=== PATIENT | female | born 1980 | race Caucasian/White ===

== ENCOUNTER 2019-03-16 19:07 | Emergency (ER) | payer OTHER, SELFPAY ==
[2019-03-16 19:27] VITALS: BP 155/82; PULSE 73; RESP 14; TEMP 36.2; O2SAT 100; BMI 45.6
--- NOTE | 2019-03-16 20:36 | ED.DIZZY ---
HPI - Dizziness <MALOU Ansari - Last Filed: 03/16/19 22:43> General Chief Complaint: Dizziness Stated Complaint: DIZZY Time Seen by Provider: 03/16/19 20:19 Source: patient Mode of arrival: ambulatory Limitations: no limitations History of Present Illness HPI Narrative: 30-year-old healthy female presents emergency department today after feeling lightheaded since yesterday. States that she had an earache on Tuesday and Tuesday, felt that her chest was tight on Tuesday and Tuesday, and felt congested with a slight postnasal drip the past few days. States that she feels like she stepped off a boat. Denies syncope, chest pain, shortness of breath, nausea, vomiting, abdominal pain, leg swelling, feeling like the room spinning, head trauma, or palpitations. MD complaint: lightheadedness Onset (ago): day(s) Timing: gradual onset Description: lightheadedness History of similar episodes: No History of trauma: No Severity: moderate Relieving factors: nothing Exacerbating factors: nothing Associated symptoms: denies other symptoms Related Data Home Medications Medication Instructions Recorded Confirmed No Known Home Medications 09/21/18 09/21/18 Allergies Allergy/AdvReac Type Severity Reaction Status Date / Time morphine Allergy Mild HIVES Verified 03/16/19 19:27 Review of Systems <MALOU Ansari - Last Filed: 03/16/19 22:43> Review of Systems REVIEW OF SYSTEMS: GENERAL: Denies fever, chills, malaise, or wt. loss. HENT: No head trauma, sore throat, or hearing loss. HPI EYES: No loss of vision, double vision, eye pain, or irritation. CARDIOVASCULAR: No chest pain, palpitations, edema, syncope, or orthopnea. RESPIRATORY: No shortness of breath, cough, or wheeze. GASTROINTESTINAL: No change in appetite, nausea, vomiting, stool changes, or melena. GENITOURINARY: No flank pain, urinary incontinence, hesitancy, frequency, or dysuria. No vaginal discharge or dyspareunia. MUSCULOSKELETAL: No pain, weakness, or deformities. INTEGUMENTARY: No rash, lesions, or pruritus. NEURO: Complains of dizziness, see HPI PSYCH: No behavior or mood changes. ENDOCRINOLOGY: No hair loss of temperature intolerance. HEMATOLOGY: No easy bruising. LYMPHATIC: No lymphadenopathy. PFSH <MALOU Ansari - Last Filed: 03/16/19 22:43> Medical History Arthritis (Chronic) Depression (Chronic) Hidradenitis suppurativa (Chronic) Obesity (Chronic) Rosacea (Chronic) Family History Grandmother Polymyalgia rheumatica Mother Hypertension Family/Other Polymyalgia rheumatica Son Autism Social History Smoking Status: Never smoker Family History Grandmother Polymyalgia rheumatica Mother Hypertension Family/Other Polymyalgia rheumatica Son Autism Social History Smoking Status: Never smoker Exam <MALOU Ansari - Last Filed: 03/16/19 22:43> Initial Vital Signs Initial Vital Signs: Vital Signs Temperature 97.2 F L 03/16/19 19:27 Pulse Rate 73 03/16/19 19:27 Respiratory Rate 14 03/16/19 19:27 Blood Pressure 155/82 H 03/16/19 19:27 Pulse Oximetry 100 03/16/19 19:27 PHYSICAL EXAMINATION: GENERAL: Well groomed, alert, and cooperative Answers questions promptly and appropriately. Vital signs noted. HENT: Normocephalic, atraumatic. Facial features symmetrical. Ear canals patent without excessive wax or erythema. Slight erythema to the back of the oropharynx, postnasal drip noted. Oral mucosa is pink and moist. Slight tenderness to palpation of frontal sinuses. EYES: PERRLA, conjunctiva pink, sclera white, no periorbital swelling. CHEST: Normal to inspection and without deformities. CARDIOVASCULAR: S1 and S2 sounds normal. Regular rate and rhythm, no murmurs, clicks, or bruits. No pedal edema. RESPIRATORY: Normal respiratory rate, trachea midline, airway patent. No stridor, nasal flaring or accessory muscle use. Lungs are clear in all king without wheeze, rhonchi, or crackles. GASTROINTESTINAL: Bowel sounds normoactive. Abdomen is soft and non-tender. No organomegaly. MUSCULOSKELETAL: Normal gait and coordination. Equal tone and mass bilaterally. No spinal tenderness or deformities. EXTREMITIES: CMS intact. Moves all extremities. SKIN: Warm, dry, soft, appropriate color for ethnicity. No lesions, rashes, or wounds. NEURO: Alert and Oriented X 3. Good coordination. No ataxia, or sensory deficits, or cognitive issues. PSYCH: Appropriate affect and mood. <Bill Bronson DO - Last Filed: 03/17/19 00:40> Initial Vital Signs Initial Vital Signs: Vital Signs Temperature 97.2 F L 03/16/19 19:27 Pulse Rate 73 03/16/19 19:27 Respiratory Rate 14 03/16/19 19:27 Blood Pressure 155/82 H 03/16/19 19:27 Pulse Oximetry 100 03/16/19 19:27 Course <MALOU Ansari - Last Filed: 03/16/19 22:43> Orders Ordered: ED Orders 03/16/19 19:27 EKG-12 Lead Stat 03/16/19 20:52 Complete Blood Count AUTO DIFF Stat Comprehensive Metabolic Panel Stat Troponin I Stat Discontinued Medications Meclizine HCl (Antivert) 25 mg PO NOW ONE Stop: 03/16/19 20:33 Last Admin: 03/16/19 20:47 Dose: 25 mg Reevaluation(s) Reevaluation #1: Patient states she is feeling much better after administration of meclizine. Discussed lab results with patient states that she is commonly slightly anemic. Consultations Consultation #1: Patient staffed with Dr. Bronson whom agreed with plan of care. Vital Signs - 8 hr 03/16/19 19:27 03/16/19 21:35 Temperature 97.2 F L Pulse Rate 73 62 Respiratory Rate 14 16 Blood Pressure 155/82 H Blood Pressure [Left Arm] 129/67 Pulse Oximetry 100 99 <Bill Bronson DO - Last Filed: 03/17/19 00:40> Orders Ordered: ED Orders 03/16/19 19:27 EKG-12 Lead Stat 03/16/19 20:52 Complete Blood Count AUTO DIFF Stat Comprehensive Metabolic Panel Stat Troponin I Stat Discontinued Medications Meclizine HCl (Antivert) 25 mg PO NOW ONE Stop: 03/16/19 20:33 Last Admin: 03/16/19 20:47 Dose: 25 mg Vital Signs - 8 hr 03/16/19 19:27 03/16/19 21:35 Temperature 97.2 F L Pulse Rate 73 62 Respiratory Rate 14 16 Blood Pressure 155/82 H Blood Pressure [Left Arm] 129/67 Pulse Oximetry 100 99 MDM - Dizziness <IRWIN AnsariP - Last Filed: 03/16/19 22:43> Medical Records Attestation: I reviewed the patient's medical records. Lab Data Attestation: I reviewed the patient's lab results. Result diagrams: 03/16/19 20:52 03/16/19 20:52 Lab Results 03/16/19 03/16/19 Range/Units 20:52 20:52 WBC 9.3 (4.5-11.0) X10^3/uL RBC 4.80 (4.0-5.2) X10^6/uL Hgb 12.1 (12.0-16.0) g/dL Hct 35.8 L (36-46) % MCV 74.6 L (80-100) fL MCH 25.2 L (26-34) PG MCHC 33.7 (30-36) % RDW 14.3 (11.6-14.8) % Plt Count 244 (150-400) X10^3/uL Neut % (Auto) 67.4 (50-75) % Lymph % (Auto) 22.7 L (25-40) % Ida % (Auto) 7.8 (3-14) % Eos % (Auto) 1.2 L (2-4) % Baso % (Auto) 0.9 (0-2) % Neut # (Auto) 6300 (8003-9570) /uL Lymph # (Auto) 2100 (9245-1312) /uL Ida # (Auto) 700 (0-900) /uL Eos # (Auto) 100 (0-450) /uL Baso # (Auto) 100 (0-100) /uL Sodium 139 (137-145) mmol/L Potassium 3.9 (3.4-5.1) mmol/L Chloride 105 (98-107) mmol/L Carbon Dioxide 27 (22-32) mmol/L BUN 19 H (7-17) mg/dL Creatinine 0.80 (0.52-1.04) mg/dL Estimated GFR > 60.0 (>60) mL/min BUN/Creatinine Ratio 23.8 H (6-22) Glucose 85 (70-100) mg/dL Calcium 9.6 (8.4-10.2) mg/dL Total Bilirubin 0.4 (0.2-1.3) mg/dL AST 18 (14-36) IU/L ALT 7 L (9-52) IU/L Alkaline Phosphatase 99 (38-126) U/L Troponin I < 0.012 (0.01-0.034) ng/mL Total Protein 7.8 (6.3-8.2) g/dL Albumin 4.3 (3.5-5.0) g/dL Globulin 3.5 (1.7-4.1) g/dL Albumin/Globulin Ratio 1.2 (1.0-2.8) Urine Dip Bedside Urine Glucose Negative Bedside Urine Bilirubin - Negative Bedside Urine Ketone - Negative Urine Specific [place] 1.025 Bedside Urine Occult Blood +/- Bedside Urine pH 6.0 Bedside Urine Protein - Negative Bedside Urine Urobilinogen - Negative Bedside Urine Nitrite - Negative Bedside Urine Leukocytes - Negative Esterase ECG Data Attestation: I personally reviewed and interpreted this ECG as follows: Interpretation: Sinus rhythm, rate 61, GA interval 141, QTC 404, no ST elevation, no ST depression, no T-wave abnormality. [facility] Narrative Medical decision making narrative: Suspect her dizziness is caused by a variety of things potentially slight anemia (Chronic and is currently menstruating), dehydration as noted in labs, possibly the beginning of a upper respiratory illness. Less likely cardiac in nature due to negative troponins and unremarkable EKG. Less likely vertigo caused right inner ear issues due to clear tympanic membranes, and no complaints of the room spinning. Less likely central vertical due to negative neuro exam. <Bill Bronson, DO - Last Filed: 03/17/19 00:40> Lab Data Lab Results 03/16/19 03/16/19 Range/Units 20:52 20:52 WBC 9.3 (4.5-11.0) X10^3/uL RBC 4.80 (4.0-5.2) X10^6/uL Hgb 12.1 (12.0-16.0) g/dL Hct 35.8 L (36-46) % MCV 74.6 L (80-100) fL MCH 25.2 L (26-34) PG MCHC 33.7 (30-36) % RDW 14.3 (11.6-14.8) % Plt Count 244 (150-400) X10^3/uL Neut % (Auto) 67.4 (50-75) % Lymph % (Auto) 22.7 L (25-40) % Ida % (Auto) 7.8 (3-14) % Eos % (Auto) 1.2 L (2-4) % Baso % (Auto) 0.9 (0-2) % Neut # (Auto) 6300 (7077-3478) /uL Lymph # (Auto) 2100 (9495-0521) /uL Ida # (Auto) 700 (0-900) /uL Eos # (Auto) 100 (0-450) /uL Baso # (Auto) 100 (0-100) /uL Sodium 139 (137-145) mmol/L Potassium 3.9 (3.4-5.1) mmol/L Chloride 105 (98-107) mmol/L Carbon Dioxide 27 (22-32) mmol/L BUN 19 H (7-17) mg/dL Creatinine 0.80 (0.52-1.04) mg/dL Estimated GFR > 60.0 (>60) mL/min BUN/Creatinine Ratio 23.8 H (6-22) Glucose 85 (70-100) mg/dL Calcium 9.6 (8.4-10.2) mg/dL Total Bilirubin 0.4 (0.2-1.3) mg/dL AST 18 (14-36) IU/L ALT 7 L (9-52) IU/L Alkaline Phosphatase 99 (38-126) U/L Troponin I < 0.012 (0.01-0.034) ng/mL Total Protein 7.8 (6.3-8.2) g/dL Albumin 4.3 (3.5-5.0) g/dL Globulin 3.5 (1.7-4.1) g/dL Albumin/Globulin Ratio 1.2 (1.0-2.8) Urine Dip Bedside Urine Glucose Negative Bedside Urine Bilirubin - Negative Bedside Urine Ketone - Negative Urine Specific [place] 1.025 Bedside Urine Occult Blood +/- Bedside Urine pH 6.0 Bedside Urine Protein - Negative Bedside Urine Urobilinogen - Negative Bedside Urine Nitrite - Negative Bedside Urine Leukocytes - Negative Esterase Discharge Plan Departure Patient Disposition: Home Clinical Impression: Dizziness Discharge Date/Time: 03/16/19 22:02 Interventions: ED Discharge Assessment Last Done: 03/16/19 22:01 Instructions: DI for Vertigo, DI for Dizziness-Nonvertigo Activity Restrictions/Additional Instructions: Thank you for entrusting me with your care today. As discussed, it appears that you are mildly anemic as well as dehydrated based on your labs. Recommend following up with their primary care provider in the next few weeks to keep an eye on this. Please drink a lot of fluids next coming days and then get some rest. You also may use [id number] meclizine as needed for symptoms. Return emergency department if you experience chest pain, shortness of breath, syncope or worsening dizziness. Prescriptions: No Action No Known Home Medications RF: 0 Referrals: Kiel Ramírez MD [Primary Care Provider] - <Bill Bronson DO - Last Filed: 03/17/19 00:40> Cosign ED Attending Fili Attestation: I was available for consultation during this patient's emergency department encounter
--- NOTE | 2019-03-16 20:40 | ED_ITS ---
HPI - Dizziness <MALOU Ansari - Last Filed: 03/16/19 22:43> General Chief Complaint: Dizziness Stated Complaint: DIZZY Time Seen by Provider: 03/16/19 20:19 Source: patient Mode of arrival: ambulatory Limitations: no limitations History of Present Illness HPI Narrative: 30-year-old healthy female presents emergency department today after feeling lightheaded since yesterday. States that she had an earache on Tuesday and Tuesday, felt that her chest was tight on Tuesday and Tuesday, and felt congested with a slight postnasal drip the past few days. States that she feels like she stepped off a boat. Denies syncope, chest pain, shortness of breath, nausea, vomiting, abdominal pain, leg swelling, feeling like the room spinning, head trauma, or palpitations. MD complaint: lightheadedness Onset (ago): day(s) Timing: gradual onset Description: lightheadedness History of similar episodes: No History of trauma: No Severity: moderate Relieving factors: nothing Exacerbating factors: nothing Associated symptoms: denies other symptoms Related Data Home Medications Medication Instructions Recorded Confirmed No Known Home Medications 09/21/18 09/21/18 Allergies Allergy/AdvReac Type Severity Reaction Status Date / Time morphine Allergy Mild HIVES Verified 03/16/19 19:27 Review of Systems <MALOU Ansari - Last Filed: 03/16/19 22:43> Review of Systems REVIEW OF SYSTEMS: GENERAL: Denies fever, chills, malaise, or wt. loss. HENT: No head trauma, sore throat, or hearing loss. HPI EYES: No loss of vision, double vision, eye pain, or irritation. CARDIOVASCULAR: No chest pain, palpitations, edema, syncope, or orthopnea. RESPIRATORY: No shortness of breath, cough, or wheeze. GASTROINTESTINAL: No change in appetite, nausea, vomiting, stool changes, or melena. GENITOURINARY: No flank pain, urinary incontinence, hesitancy, frequency, or dysuria. No vaginal discharge or dyspareunia. MUSCULOSKELETAL: No pain, weakness, or deformities. INTEGUMENTARY: No rash, lesions, or pruritus. NEURO: Complains of dizziness, see HPI PSYCH: No behavior or mood changes. ENDOCRINOLOGY: No hair loss of temperature intolerance. HEMATOLOGY: No easy bruising. LYMPHATIC: No lymphadenopathy. PFSH <MALOU Ansari - Last Filed: 03/16/19 22:43> Medical History Arthritis (Chronic) Depression (Chronic) Hidradenitis suppurativa (Chronic) Obesity (Chronic) Rosacea (Chronic) Family History Grandmother Polymyalgia rheumatica Mother Hypertension Family/Other Polymyalgia rheumatica Son Autism Social History Smoking Status: Never smoker Family History Grandmother Polymyalgia rheumatica Mother Hypertension Family/Other Polymyalgia rheumatica Son Autism Social History Smoking Status: Never smoker Exam <MALOU Ansari - Last Filed: 03/16/19 22:43> Initial Vital Signs Initial Vital Signs: Vital Signs Temperature 97.2 F L 03/16/19 19:27 Pulse Rate 73 03/16/19 19:27 Respiratory Rate 14 03/16/19 19:27 Blood Pressure 155/82 H 03/16/19 19:27 Pulse Oximetry 100 03/16/19 19:27 PHYSICAL EXAMINATION: GENERAL: Well groomed, alert, and cooperative Answers questions promptly and appropriately. Vital signs noted. HENT: Normocephalic, atraumatic. Facial features symmetrical. Ear canals patent without excessive wax or erythema. Slight erythema to the back of the oropharynx, postnasal drip noted. Oral mucosa is pink and moist. Slight tende rness to palpation of frontal sinuses. EYES: PERRLA, conjunctiva pink, sclera white, no periorbital swelling. CHEST: Normal to inspection and without deformities. CARDIOVASCULAR: S1 and S2 sounds normal. Regular rate and rhythm, no murmurs, clicks, or bruits. No pedal edema. RESPIRATORY: Normal respiratory rate, trachea midline, airway patent. No stridor, nasal flaring or accessory muscle use. Lungs are clear in all king without wheeze, rhonchi, or crackles. GASTROINTESTINAL: Bowel sounds normoactive. Abdomen is soft and non-tender. No organomegaly. MUSCULOSKELETAL: Normal gait and coordination. Equal tone and mass bilaterally. No spinal tenderness or deformities. EXTREMITIES: CMS intact. Moves all extremities. SKIN: Warm, dry, soft, appropriate color for ethnicity. No lesions, rashes, or wounds. NEURO: Alert and Oriented X 3. Good coordination. No ataxia, or sensory d eficits, or cognitive issues. PSYCH: Appropriate affect and mood. <Bill Bronson DO - Last Filed: 03/17/19 00:40> Initial Vital Signs Initial Vital Signs: Vital Signs Temperature 97.2 F L 03/16/19 19:27 Pulse Rate 73 03/16/19 19:27 Respiratory Rate 14 03/16/19 19:27 Blood Pressure 155/82 H 03/16/19 19:27 Pulse Oximetry 100 03/16/19 19:27 Course <MALOU Ansari - Last Filed: 03/16/19 22:43> Orders Ordered: ED Orders 03/16/19 19:27 EKG-12 Lead Stat 03/16/19 20:52 Complete Blood Count AUTO DIFF Stat Comprehensive Metabolic Panel Stat Troponin I Stat Discontinued Medications Meclizine HCl (Antivert) 25 mg PO NOW ONE Stop: 03/16/19 20:33 Last Admin: 03/16/19 20:47 Dose: 25 mg Reevaluation(s) Reevaluation #1: Patient states she is feeling much better after administration of meclizine. Discussed lab results with patient states that she is commonly slightly anemic. Consultations Consultation #1: Patient staffed with Dr. Bronson whom agreed with plan of care. Vital Signs - 8 hr 03/16/19 19:27 03/16/19 21:35 Temperature 97.2 F L Pulse Rate 73 62 Respiratory Rate 14 16 Blood Pressure 155/82 H Blood Pressure [Left Arm] 129/67 Pulse Oximetry 100 99 <Bill Bronson DO - Last Filed: 03/17/19 00:40> Orders Ordered: ED Orders 03/16/19 19:27 EKG-12 Lead Stat 03/16/19 20:52 Complete Blood Count AUTO DIFF Stat Comprehensive Metabolic Panel Stat Troponin I Stat Discontinued Medications Meclizine HCl (Antivert) 25 mg PO NOW ONE Stop: 03/16/19 20:33 Last Admin: 03/16/19 20:47 Dose: 25 mg Vital Signs - 8 hr 03/16/19 19:27 03/16/19 21:35 Temperature 97.2 F L Pulse Rate 73 62 Respiratory Rate 14 16 Blood Pressure 155/82 H Blood Pressure [Left Arm] 129/67 Pulse Oximetry 100 99 MDM - Dizziness <MALOU Ansari - Last Filed: 03/16/19 22:43> Medical Records Attestation: I reviewed the patient's medical records. Lab Data Attestation: I reviewed the patient's lab results. Result diagrams: 03/16/19 20:52 03/16/19 20:52 Lab Results 03/16/19 03/16/19 Range/Units 20:52 20:52 WBC 9.3 (4.5-11.0) X10^3/uL RBC 4.80 (4.0-5.2) X10^6/uL Hgb 12.1 (12.0-16.0) g/dL Hct 35.8 L (36-46) % MCV 74.6 L (80-100) fL MCH 25.2 L (26-34) PG MCHC 33.7 (30-36) % RDW 14.3 (11.6-14.8) % Plt Count 244 (150-400) X10^3/uL Neut % (Auto) 67.4 (50-75) % Lymph % (Auto) 22.7 L (25-40) % [place] % (Auto) 7.8 (3-14) % Eos % (Auto) 1.2 L (2-4) % Baso % (Auto) 0.9 (0-2) % Neut # (Auto) 6300 (6998-3304) /uL Lymph # (Auto) 2100 (4259-7904) /uL [place] # (Auto) 700 (0-900) /uL Eos # (Auto) 100 (0-450) /uL Baso # (Auto) 100 (0-100) /uL Sodium 139 (137-145) mmol/L Potassium 3.9 (3.4-5.1) mmol/L Chloride 105 (98-107) mmol/L Carbon Dioxide 27 (22-32) mmol/L BUN 19 H (7-17) mg/dL Creatinine 0.80 (0.52-1.04) mg/dL Estimated GFR > 60.0 (>60) mL/min BUN/Creatinine Ratio 23.8 H (6-22) Glucose 85 (70-100) mg/dL Calcium 9.6 (8.4-10.2) mg/dL Total Bilirubin 0.4 (0.2-1.3) mg/dL AST 18 (14-36) IU/L ALT 7 L (9-52) IU/L Alkaline Phosphatase 99 (38-126) U/L Troponin I < 0.012 (0.01-0.034) ng/mL Total Protein 7.8 (6.3-8.2) g/dL Albumin 4.3 (3.5-5.0) g/dL Globulin 3.5 (1.7-4.1) g/dL Albumin/Globulin Ratio 1.2 (1.0-2.8) Urine Dip Bedside Urine Glucose Negative Bedside Urine Bilirubin - Negative Bedside Urine Ketone - Negative Urine Specific [place] 1.025 Bedside Urine Occult Blood +/- Bedside Urine pH 6.0 Bedside Urine Protein - Negative Bedside Urine Urobilinogen - Negative Bedside Urine Nitrite - Negative Bedside Urine Leukocytes - Negative Esterase ECG Data Attestation: I personally reviewed and interpreted this ECG as follows: Interpretation: Sinus rhythm, rate 61, NV interval 141, QTC 404, no ST elevation, no ST depression, no T-wave abnormality. [facility] Narrative Medical decision making narrative: Suspect her dizziness is caused by a variety of things potentially slight anemia (Chronic and is currently menstruating), dehydration as noted in labs, possibly the beginning of a upper respiratory illness. Less likely cardiac in nature due to negative troponins and unremarkable EKG. Less likely vertigo caused right inner ear issues due to clear tympanic membranes, and no complaints of the room spinning. Less likely central vertical due to negative neuro exam. <Bill Bronson, DO - Last Filed: 03/17/19 00:40> Lab Data Lab Results 03/16/19 03/16/19 Range/Units 20:52 20:52 WBC 9.3 (4.5-11.0) X10^3/uL RBC 4.80 (4.0-5.2) X10^6/uL Hgb 12.1 (12.0-16.0) g/dL Hct 35.8 L (36-46) % MCV 74.6 L (80-100) fL MCH 25.2 L (26-34) PG MCHC 33.7 (30-36) % RDW 14.3 (11.6-14.8) % Plt Count 244 (150-400) X10^3/uL Neut % (Auto) 67.4 (50-75) % Lymph % (Auto) 22.7 L (25-40) % [place] % (Auto) 7.8 (3-14) % Eos % (Auto) 1.2 L (2-4) % Baso % (Auto) 0.9 (0-2) % Neut # (Auto) 6300 (7431-4599) /uL Lymph # (Auto) 2100 (5499-0242) /uL [place] # (Auto) 700 (0-900) /uL Eos # (Auto) 100 (0-450) /uL Baso # (Auto) 100 (0-100) /uL Sodium 139 (137-145) mmol/L Potassium 3.9 (3.4-5.1) mmol/L Chloride 105 (98-107) mmol/L Carbon Dioxide 27 (22-32) mmol/L BUN 19 H (7-17) mg/dL Creatinine 0.80 (0.52-1.04) mg/dL Estimated GFR > 60.0 (>60) mL/min BUN/Creatinine Ratio 23.8 H (6-22) Glucose 85 (70-100) mg/dL Calcium 9.6 (8.4-10.2) mg/dL Total Bilirubin 0.4 (0.2-1.3) mg/dL AST 18 (14-36) IU/L ALT 7 L (9-52) IU/L Alkaline Phosphatase 99 (38-126) U/L Troponin I < 0.012 (0.01-0.034) ng/mL Total Protein 7.8 (6.3-8.2) g/dL Albumin 4.3 (3.5-5.0) g/dL Globulin 3.5 (1.7-4.1) g/dL Albumin/Globulin Ratio 1.2 (1.0-2.8) Urine Dip Bedside Urine Glucose Negative Bedside Urine Bilirubin - Negative Bedside Urine Ketone - Negative Urine Specific [place] 1.025 Bedside Urine Occult Blood +/- Bedside Urine pH 6.0 Bedside Urine Protein - Negative Bedside Urine Urobilinogen - Negative Bedside Urine Nitrite - Negative Bedside Urine Leukocytes - Negative Esterase Discharge Plan Departure Patient Disposition: Home Clinical Impression: Dizziness Discharge Date/Time: 03/16/19 22:02 Interventions: ED Discharge Assessment Last Done: 03/16/19 22:01 Instructions: DI for Vertigo, DI for Dizziness-Nonvertigo Activity Restrictions/Additional Instructions: Thank you for entrusting me with your care today. As discussed, it appears that you are mildly anemic as well as dehydrated based on your labs. Recommend following up with their primary care provider in the next few weeks to keep an eye on this. Please drink a lot of fluids next coming days and then get some rest. You also may use [id number] meclizine as needed for symptoms. Return emergency department if you experience chest pain, shortness of breath, syncope or worsening dizziness. Prescriptions: No Action No Known Home Medications RF: 0 Referrals: Kiel Ramírez MD [Primary Care Provider] - <Bill Bronson DO - Last Filed: 03/17/19 00:40> Cosign ED Attending [place] Attestation: I was available for consultation during this patient's emergency department encounter
[2019-03-16] MEDS: MECLIZINE HCL 12.5 MG TABLET 25 MG PO (20:47)
[2019-03-16 21:02] LABS: Add Manual Diff / Slide Review NO; Basophils Absolute Auto 100 /uL (0-100); Basophils Percent Auto 0.9 % (0-2); Eosinophils Absolute Auto 100 /uL (0-450); Eosinophils Percent Auto 1.2 % (2-4); Hematocrit 35.8 % (36-46); Hemoglobin 12.1 g/dL (12.0-16.0); Lymphocytes Absolute Auto 2100 /uL (1100-4500); Lymphocytes Percent Auto 22.7 % (25-40); Mean Corpuscular HGB Conc 33.7 % (30-36); Mean Corpuscular Hemoglobin 25.2 PG (26-34); Mean Corpuscular Volume 74.6 fL (80-100); Monocytes Absolute Auto 700 /uL (0-900); Monocytes Percent Auto 7.8 % (3-14); Neutrophils Absolute Auto 6300 /uL (1500-7000); Neutrophils Percent Auto 67.4 % (50-75); Platelet Count 244 X10^3/uL (150-400); Red Cell Distribution Width 14.3 % (11.6-14.8); White Blood Cell Count 9.3 X10^3/uL (4.5-11.0)
[2019-03-16 21:19] LABS: Alanine Aminotransferase 7 IU/L (9-52); Albumin 4.3 g/dL (3.5-5.0); Albumin Globulin Ratio 1.2 (1.0-2.8); Alkaline Phosphatase 99 U/L (38-126); Aspartate Aminotransferase 18 IU/L (14-36); BUN Creatinine Ratio 23.8 (6-22); Bilirubin Total 0.4 mg/dL (0.2-1.3); Blood Urea Nitrogen 19 mg/dL (7-17); Calcium 9.6 mg/dL (8.4-10.2); Carbon Dioxide 27 mmol/L (22-32); Chloride 105 mmol/L (98-107); Estimated Glomerular Filt Rate > 60.0 mL/min (>60); Globulin 3.5 g/dL (1.7-4.1); Glucose 85 mg/dL (70-100); HEMOLYSIS < 15 (0-50); Potassium 3.9 mmol/L (3.4-5.1); Sodium 139 mmol/L (137-145); Total Protein 7.8 g/dL (6.3-8.2)
[2019-03-16 21:29] LABS: Troponin I < 0.012 ng/mL (0.01-0.034)
[2019-03-16 21:35] VITALS: BP 129/67; PULSE 62; RESP 16; O2SAT 99
== END 2019-03-16 22:02 | disposition home or self-care (01) ==
PROVIDERS: Emergency Provider Nurse Practitioner; Family Provider Family Medicine; PCP Family Medicine
DX: R42 Dizziness and giddiness (principal); R07.89 Other chest pain
CPT/HCPCS: 36415; 80053; 81003; 84484; 85025; 93005; 99282; 99284

== ENCOUNTER → 2019-12-11 15:27 | Outpatient (CLI) | payer OTHER, SELFPAY ==
--- NOTE | 2019-12-11 15:28 | DI.RAD.S_ITS ---
PROCEDURE: XR KNEE RT 3V INDICATIONS: knee pain TECHNIQUE: 3 views of the knee were acquired. COMPARISON: None. FINDINGS: Bones: No fractures or dislocations. No suspicious bony lesions. Mild tricompartmental knee joint narrowing with periarticular osteophyte formation. Soft tissues: Small joint effusion. No suspicious soft tissue calcifications. IMPRESSION: Mild tricompartmental knee joint degeneration. Dictated by: Jack LUNA Interpreted: Destiney Dickens MD on 12/11/2019 at 17:00 Approved by: Destiney Dickens M.D. on 12/11/2019 at 17:14
--- NOTE | 2019-12-11 15:28 | DI.RAD.S_ITS ---
PROCEDURE: XR KNEE LT 3V INDICATIONS: knee pain TECHNIQUE: 3 views of the knee were acquired. COMPARISON: [facility], , KNEE 3V LEFT, 05/26/2013, 17:33. FINDINGS: Bones: No fractures or dislocations. No suspicious bony lesions. Moderate lateral patellofemoral knee joint narrowing with tricompartmental periarticular osteophyte formation. Soft tissues: Small joint effusion. No suspicious soft tissue calcifications. IMPRESSION: Tricompartmental knee joint degeneration, most notably moderate involving the patellofemoral knee joint. Dictated by: Jack GOVEA Interpreted: Destiney Dickens MD on 12/11/2019 at 16:59 Approved by: Destiney Dickens M.D. on 12/11/2019 at 17:14
--- NOTE | 2019-12-11 15:28 | DI.RAD.S_ITS ---
PROCEDURE: XR SHOULDER LT MIN 2V INDICATIONS: shoulder pain TECHNIQUE: 3 views of the shoulder were acquired. COMPARISON: None. FINDINGS: Bones: No fractures or dislocations. No suspicious bony lesions. Visualized ribs appear intact. Soft tissues: No suspicious soft tissue calcifications. IMPRESSION: No definite radiographic abnormality. If pain persists with conservative management, consider cross sectional imaging such as CT or MRI for further assessment. Dictated by: Jack Adam [facility] Interpreted: Destiney Dickens MD on 12/11/2019 at 17:02 Approved by: Destiney Dickens M.D. on 12/11/2019 at 17:14
[2019-12-11 17:16] LABS: Add Manual Diff / Slide Review NO; Basophils Absolute Auto 0 /uL (0-100); Basophils Percent Auto 0.3 % (0-2); Eosinophils Absolute Auto 100 /uL (0-450); Hematocrit 34.8 % (36-46); Hemoglobin 11.7 g/dL (12.0-16.0); Lymphocytes Absolute Auto 1700 /uL (1100-4500); Lymphocytes Percent Auto 23.5 % (25-40); Mean Corpuscular HGB Conc 33.7 % (30-36); Mean Corpuscular Hemoglobin 24.9 PG (26-34); Mean Corpuscular Volume 73.7 fL (80-100); Monocytes Absolute Auto 600 /uL (0-900); Neutrophils Absolute Auto 5000 /uL (1500-7000); Neutrophils Percent Auto 67.2 % (50-75); Platelet Count 251 X10^3/uL (150-400); Red Blood Cell Count 4.72 X10^6/uL (4.0-5.2); Red Cell Distribution Width 14.5 % (11.6-14.8); White Blood Cell Count 7.5 X10^3/uL (4.5-11.0)
[2019-12-11 17:32] LABS: Alanine Aminotransferase 9 IU/L (<35); Albumin 4.4 g/dL (3.5-5.0); Albumin Globulin Ratio 1.3 (1.0-2.8); Alkaline Phosphatase 95 U/L (38-126); Aspartate Aminotransferase 23 IU/L (14-36); BUN Creatinine Ratio 18.6 (6-22); Bilirubin Total 0.4 mg/dL (0.2-1.3); Blood Urea Nitrogen 13 mg/dL (7-17); Calcium 9.6 mg/dL (8.4-10.2); Carbon Dioxide 27 mmol/L (22-32); Chloride 103 mmol/L (98-107); Estimated Glomerular Filt Rate > 60.0 mL/min (>60); Globulin 3.4 g/dL (1.7-4.1); Glucose 79 mg/dL (70-100); HEMOLYSIS < 15 (0-50); Potassium 4.1 mmol/L (3.4-5.1); Sodium 139 mmol/L (137-145); Total Protein 7.8 g/dL (6.3-8.2)
[2019-12-11 17:34] LABS: Rheumatoid Factor < 8.6 IU/mL (<12.0)
[2019-12-11 17:46] LABS: Erythrocyte Sedimentation Rate 41 MM/HR (0-20)
[2019-12-13 12:17] LABS: CCP Antibody (IgG) < 16 Units (< 20)
== END ==
PROVIDERS: Family Provider Family Medicine; PCP Family Medicine; Referring Provider Family Medicine; Visit Provider Family Medicine
DX: M25.562 Pain in left knee (principal); M25.561 Pain in right knee; M25.512 Pain in left shoulder; M17.0 Bilateral primary osteoarthritis of knee; R29.898 Other symptoms and signs involving the musculoskeletal system
CPT/HCPCS: 36415; 73030; 73562; 80053; 85025; 85651; 86140; 86200; 86430

== ENCOUNTER → 2022-04-16 15:29 | Outpatient (CLI) | payer OTHER, SELFPAY ==
--- NOTE | 2022-04-16 | DI.MRI.S_ITS ---
PROCEDURE: MR ANKLE RT WO/W CON INDICATIONS: RIGHT ANKLE PAIN AND JOINTS OF RIGHT FOOT TECHNIQUE: Noncontrast sagittal T1 spin echo and T2 fast spin echo with fat saturation, axial proton density fast spin echo and T2 fast spin echo with fat saturation, axial T1 spin echo with fat saturation, coronal T1 spin echo and T2 fast spin echo with fat saturation through the ankle/hindfoot. Post-contrast axial, coronal, and sagittal T1 spin echo with fat saturation through the ankle/hindfoot. COMPARISON: [facility] [place], CR, XR FOOT 3+ VIEWS RIGHT, 03/09/2022, 9:14. [facility] [place], CR, XR ANKLE 1 OR 2 VIEWS RIGHT, 03/09/2022, 9:19. FINDINGS: Image quality: Excellent. Bones and joints: Intraosseous cyst formation involving mid to distal portion of cuboid is seen with mild surrounding edema and internal septation. No contrast enhancement is seen. No other area of abnormal marrow signal. No fracture or dislocation. No osteochondral injury of talar dome. Well-defined plantar and dorsal calcaneal enthesophytes are seen. No abnormal intraosseous enhancement. Medial structures: The posterior tibialis, flexor digitorum longus, and flexor hallucis longus tendons are intact. The posterior tibial neurovascular bundle appears normal within the tarsal tunnel, without extrinsic mass effect. The deep layer (anterior and posterior tibiotalar ligaments) and superficial layer (tibionavicular, tibiospring, and tibiocalcaneal ligaments) of the deltoid ligament appear normal. The spring ligament components (superomedial calcaneonavicular, medioplantar oblique calcaneonavicular, and inferoplantar longitudinal ligaments) are intact. Lateral structures: The anterior talofibular, calcaneofibular, and posterior talofibular ligaments appear thickened with intrasubstance T2 hyperintense signal. More superiorly, the anterior and posterior tibiofibular ligaments appear attenuated with intrasubstance T2 hyperintense signal. The tibiofibular syndesmosis is normal in width at 2 mm or less. The peroneus longus and brevis tendons demonstrate normal location and morphology. Adjacent bony peroneal tubercle and retrotrochlear prominence are normal in size. The sinus tarsi demonstrates normal fatty signal, without edema, fibrosis, or cyst formation. Visualized sinus tarsi components (cervical ligament, interosseous talocalcaneal ligament, roots of the inferior extensor retinaculum) appear normal. The calcaneonavicular and calcaneocuboid components of the bifurcate ligament appear intact. The dorsal calcaneocuboid ligament appears intact. Anterior structures: The tibialis anterior, extensor hallucis longus, and extensor digitorum longus tendons appear intact. The dorsal talonavicular ligament appears intact. Posterior and plantar structures: Tendinosis and low-grade partial-thickness tear involving distal Achilles tendon at its posterior calcaneal insertion is noted. Thickened medial band of plantar fascia at its calcaneal insertion is seen. No abductor digiti quinti muscle atrophy to suggest Doan neuropathy. IMPRESSION: 1. Septated intraosseous cyst formation in mid to distal portion of calcaneus with mild surrounding edema suggestive of stress related changes. No fracture or dislocation. No osteochondral injury of talar dome. No area of abnormal intraosseous enhancement. 2. Well-defined plantar and dorsal calcaneal enthesophytes with thickened medial band of plantar fascia suggestive of low-grade plantar fasciitis. Tendinosis and low-grade partial-thickness tear involving distal Achilles tendon at its calcaneal insertion. No Achilles tendon rupture. 3. Extensor, flexor, and peroneus tendons are grossly intact. 4. Medial ankle ligaments are intact. Sprain/low to moderate grade intrasubstance partial-thickness tear involving lateral ankle ligaments. No significant widening of distal tibial fibular syndesmosis. No area of abnormal soft tissue enhancement. Dictated by: Simone Kemp M.D. on 04/17/2022 at 9:12 Approved by: Simone Kemp M.D. on 04/17/2022 at 10:13
== END ==
PROVIDERS: Family Provider Family Medicine; PCP Family Medicine; Referring Provider Podiatrist; Visit Provider Podiatrist
DX: S93.491A Sprain of other ligament of right ankle, initial encounter (principal); S86.011A Strain of right Achilles tendon, initial encounter; M77.31 Calcaneal spur, right foot; M25.571 Pain in right ankle and joints of right foot
CPT/HCPCS: 73723; A9579

== ENCOUNTER → 2023-06-30 09:17 | Outpatient (CLI) | payer OTHER, SELFPAY ==
[2023-06-30 10:43] LABS: Add Manual Diff / Slide Review NO; Basophils Absolute Auto 0 /uL (0-100); Basophils Percent Auto 0.3 % (0-2); Eosinophils Absolute Auto 0 /uL (0-450); Eosinophils Percent Auto 0.8 % (2-4); Hematocrit 34.2 % (36-46); Hemoglobin 11.5 g/dL (12.0-16.0); Lymphocytes Absolute Auto 1200 /uL (1100-4500); Lymphocytes Percent Auto 20.1 % (25-40); Mean Corpuscular HGB Conc 33.6 % (30-36); Mean Corpuscular Hemoglobin 23.8 PG (26-34); Mean Corpuscular Volume 70.6 fL (80-100); Monocytes Absolute Auto 600 /uL (0-900); Monocytes Percent Auto 9.4 % (3-14); Neutrophils Absolute Auto 4300 /uL (1500-7000); Neutrophils Percent Auto 69.4 % (50-75); Platelet Count 217 X10^3/uL (150-400); Red Blood Cell Count 4.85 X10^6/uL (4.0-5.2); Red Cell Distribution Width 15.7 % (11.6-14.8); White Blood Cell Count 6.2 X10^3/uL (4.5-11.0)
[2023-06-30 10:52] LABS: HEMOLYSIS < 15 (0-50); Iron 50 ug/dL (37-170)
[2023-06-30 10:55] LABS: Alanine Aminotransferase 11 IU/L (<35); Albumin 4.1 g/dL (3.5-5.0); Albumin Globulin Ratio 1.3 (1.0-2.8); Alkaline Phosphatase 78 U/L (38-126); Aspartate Aminotransferase 19 IU/L (14-36); BUN Creatinine Ratio 18.1 (6-22); Bilirubin Total 0.6 mg/dL (0.2-1.3); Blood Urea Nitrogen 13 mg/dL (7-17); Carbon Dioxide 24 mmol/L (22-32); Chloride 107 mmol/L (98-107); Cholesterol 114 mg/dL (140-199); Estimated Glomerular Filt Rate > 60 mL/min (>60); Globulin 3.2 g/dL (1.7-4.1); Glucose 92 mg/dL (70-100); HDL Cholesterol 54 mg/dL (40-60); HEMOLYSIS < 15 (0-50); LDL Cholesterol Calculated 52 mg/dL (<100); Potassium 4.7 mmol/L (3.4-5.1); Sodium 139 mmol/L (137-145); Total Protein 7.3 g/dL (6.3-8.2); Triglycerides 42 mg/dL (35-150)
[2023-06-30 11:05] LABS: Percent Iron Saturation 11 % (15-50); Total Iron Binding Capacity 454 ug/dL (265-497); Transferrin 340 mg/dL (206-381)
[2023-06-30 11:23] LABS: TSH w/ Reflex to FT4 1.62 uIU/mL (0.47-4.68)
[2023-06-30 11:31] LABS: Ferritin 7 ng/mL (6-137)
[2023-06-30 11:45] LABS: Vitamin B12 305 pg/mL (239-931)
== END ==
PROVIDERS: Family Provider Family Medicine; PCP Family Medicine; Referring Provider Physician Assistant; Visit Provider Physician Assistant
DX: E66.01 Morbid (severe) obesity due to excess calories (principal); I73.00 Raynaud's syndrome without gangrene; L65.9 Nonscarring hair loss, unspecified; N92.0 Excessive and frequent menstruation with regular cycle; R53.83 Other fatigue; Z68.42 Body mass index [BMI] 45.0-49.9, adult; Z13.220 Encounter for screening for lipoid disorders; Z13.6 Encounter for screening for cardiovascular disorders
CPT/HCPCS: 36415; 80053; 80061; 82607; 82728; 83540; 83550; 84443; 85025

== ENCOUNTER → 2023-09-04 09:30 | Outpatient (CLI) | payer OTHER, SELFPAY | PROVIDERS: Family Provider Family Medicine; PCP Family Medicine; Visit Provider Nurse Practitioner Family | DX: R10.9 Unspecified abdominal pain (principal); N94.9 Unspecified condition associated with female genital organs and menstrual cycle | CPT/HCPCS: 87086; 87210 ==

== ENCOUNTER → 2024-03-20 08:31 | Outpatient (CLI) | payer OTHER, SELFPAY ==
[2024-03-20 09:55] LABS: Add Manual Diff / Slide Review NO; Basophils Absolute Auto 0 /uL (0-100); Basophils Percent Auto 0.3 % (0-2); Eosinophils Absolute Auto 100 /uL (0-450); Eosinophils Percent Auto 0.9 % (2-4); Hemoglobin 11.7 g/dL (12.0-16.0); Lymphocytes Absolute Auto 1300 /uL (1100-4500); Lymphocytes Percent Auto 19.7 % (25-40); Mean Corpuscular HGB Conc 32.6 % (30-36); Mean Corpuscular Hemoglobin 23.7 PG (26-34); Mean Corpuscular Volume 72.6 fL (80-100); Monocytes Absolute Auto 600 /uL (0-900); Monocytes Percent Auto 8.2 % (3-14); Neutrophils Absolute Auto 4800 /uL (1500-7000); Neutrophils Percent Auto 70.9 % (50-75); Platelet Count 247 X10^3/uL (150-400); Red Blood Cell Count 4.95 X10^6/uL (4.0-5.2); Red Cell Distribution Width 15.4 % (11.6-14.8); White Blood Cell Count 6.7 X10^3/uL (4.5-11.0)
[2024-03-20 11:13] LABS: TSH w/ Reflex to FT4 2.97 uIU/mL (0.47-4.68)
== END ==
PROVIDERS: Family Provider Family Medicine; PCP Family Medicine; Referring Provider Obstetrics & Gynecology; Visit Provider Obstetrics & Gynecology
DX: N93.9 Abnormal uterine and vaginal bleeding, unspecified (principal)
CPT/HCPCS: 36415; 84443; 85025

== ENCOUNTER → 2024-04-12 13:10 | Outpatient (CLI) | payer OTHER, SELFPAY ==
--- NOTE | 2024-04-12 13:11 | DI.MRI.S_ITS ---
PROCEDURE: MR ANKLE RT WO/W CON INDICATIONS: Other cyst of bone, right ankle and foot TECHNIQUE: Noncontrast sagittal T1 spin echo and T2 fast spin echo with fat saturation, axial proton density fast spin echo and T2 fast spin echo with fat saturation, axial T1 spin echo with fat saturation, coronal T1 spin echo and T2 fast spin echo with fat saturation through the ankle/hindfoot. Post-contrast axial, coronal, and sagittal T1 spin echo with fat saturation through the ankle/hindfoot. COMPARISON: [facility], MR, MR ANKLE RT WO/W CON, 04/16/2022, 15:38. FINDINGS: Image quality: Excellent Tendons: Mild tenosynovitis of the posterior tibialis. The flexor digitorum longus and the flexor hallucis longus are unremarkable. The extensor tendons are unremarkable. Mild tenosynovitis of the peroneal tendons at the level of the lateral malleolus with longitudinal split tear of the peroneal brevis. The distal Achilles tendon is unremarkable. Ligaments: The anterior and the posterior tibiofibular ligaments are intact. The anterior and posterior talofibular ligaments are intact. The calcaneofibular ligament is intact. The deep portion deltoid ligament is intact. Sinus tarsi: No fibrosis. Plantar fascia: Small plantar calcaneal enthesophyte. The plantar fascia is otherwise unremarkable. Muscles: Normal in signal. Bones: Mild cystic changes in the lateral malleolus, reactive. A cystic lesion in the cuboid, measuring 1.5 cm, without enhancement, unchanged from prior exam. Interval near resolution previously seen surrounding marrow edema within the cuboid. There is mild subchondral marrow edema about the 4th tarsometatarsal joint, favoring degenerative. There is interval development of mild subchondral marrow edema of the lateral cuneiform, about the lateral cuneiform and the cuboid articulation, favoring degenerative. Additional interval development of mild subchondral edema at the base of the 3rd metatarsal, degenerative. No acute fracture. 4 mm ganglion cyst dorsal to the 3rd metatarsal base (series 5, image 32). 6 mm ganglion cyst plantar to the lateral cuneiform (series 7, image 16). No significant tibiotalar or posterior subtalar effusion. Mild subcutaneous edema in the medial ankle. IMPRESSION: 1. 1.5 cm cystic lesion in the cuboid, unchanged from prior exam. Interval near resolution of previously seen surrounding marrow edema in the cuboid. 2. Interval development of multifocal marrow edema in the midfoot, favoring degenerative. 3. Multiple small ganglion cysts about the midfoot. Dictated by: Juliet Vogel M.D. on 04/13/2024 at 22:19 Approved by: Juliet Vogel M.D. on 04/13/2024 at 22:36
== END ==
PROVIDERS: Family Provider Family Medicine; PCP Family Medicine; Referring Provider Podiatrist; Visit Provider Podiatrist
DX: M85.671 Other cyst of bone, right ankle and foot (principal); M67.471 Ganglion, right ankle and foot; R60.0 Localized edema
CPT/HCPCS: 73723; A9579

== ENCOUNTER 2024-11-15 13:00 | Outpatient (RCR) | payer OTHER, SELFPAY ==
--- NOTE | 2024-09-19 16:00 | PT.OIE ---
Current Diagnoses Primary osteoarthritis, left shoulder (09/19/24) Stiffness of left shoulder, not elsewhere classified (09/19/24) Impingement syndrome of left shoulder (09/19/24) Weakness (09/19/24) Past Medical History (Last Updated 02/21/24 @ 09:18 by Margaret Kearney MD) Abnormal uterine bleeding (AUB) Arthritis Depression Hidradenitis suppurativa Obesity Rosacea Visit Care Team Role Provider Type Kiel Ramírez MD Family Provider Physician Primary Care Provider Specialty: Family Practice Address: [address] [place] [address], [address], [address] Email: [email or web address] Clemente Rice MD Attending Provider Non-Staff Referring Provider Specialty: Orthopedic Surgery Address: [address] [place] [address], [id number] Email: Physical Therapy Initial Evaluation PT-OP-A Visit Information Start: 09/18/24 16:06 Freq: Status: Active Protocol: Document 09/19/24 14:31 NM (Rec: 09/19/24 15:38 NM [id number]) Out-Patient Physical Therapy Visit Information Visit Information Visit Type Initial Evaluation Visit Start Time 14:35 Visit Stop Time 15:15 Visit Number 1 Evaluation Information Evaluation Date 09/19/24 PT-OP-B Current Condition Start: 09/18/24 16:06 Freq: Status: Active Protocol: Document 09/19/24 14:31 NM (Rec: 09/19/24 15:38 NM [id number]) Current Condition History of Current Condition Onset Date chronic History of Current Condition Pt presents with L shoulder pain. States chronic, hurts all the time now. Has been worsening for last 6 months to 1 year, last couple months can no longer ignore. States onset is gradual. She reports shoulder is not there, feels . Never gets pins and needles, not numb. Pt reports pain with picking up objects, sitting on a chair, sitting with puppy under arm, sleeping (wants to sleep on L side, hard to sleep on L side, lying on back), reaching. Over last 6 months, worsening with reaching, limited ROM. No injuries to L side, none to R shoulder. No neck pain or injuries. 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 Has seen Dr. Rice for ortho, had MRI on Tuesday; has appt on 10/04 to determine if operative or non-operative repair. Prior Treatments and Tests [facility] for MRI- planning to send results to clinic. Pt reports slight tear in supraspinatus and AC joint arthritis... lots of arthritis Treatment Goals Patient/Caregiver Goals improve ROM and decrease pain Current Functional Impairments (Reported) Functional Limitations- ADL's carrying laundry baskets PT-OP-C Subjective Start: 09/18/24 16:06 Freq: Status: Active Protocol: Document 09/19/24 14:31 NM (Rec: 09/19/24 15:38 NM [id number]) OP-PT Subjective Patient Comments Patient Comments Pt consents to participate in evaluation. Feels like pain is Wearing me out Patient Questionnaires Quick Dash- Upper Extremity Quick Dash UE Score 36.4% impaired OP-PT Pain Assessment Location L shoulder Pain Location Details ant-lat shoulder Intensity 6 Scale Used Numeric (0 - 10) Description Aching,Dull Radiating Location to elbow Variations/Patterns worse by evening Pain Aggravating Factors Position,Changing Position,ADL 's,Activity,Exercise,Sitting, Lifting Other Pain Aggravating Factors reaching Pain Alleviating Factors Heat PT-OP-E Functional Tests Start: 09/18/24 16:06 Freq: Status: Active Protocol: Document 09/19/24 14:31 NM (Rec: 09/19/24 15:38 NM [id number]) Functional Tests Apley's Scratch Test Action 1- Left pec Action 1- Right post ACJ Action 2- Left mid-C spine Action 2- Right T3 Action 3- Left T12 Action 3- Right T7 PT-OP-F Manual Assessment Start: 09/18/24 16:06 Freq: Status: Active Protocol: Document 09/19/24 14:31 NM (Rec: 09/19/24 15:38 NM [id number]) Manual Assessments Soft Tissue Assessment Soft Tissue Mobility Assessment Tightness of periscapulars, R cervical paraspinals, pec and lat Tenderness of L rotator cuff, long head biceps tendon Joint Mobility Assessment Joint Mobility Assessment Slower L scapulohumeral rhythm . Limitations in L inferior humeral glide, posterior humerus. Increased anterior humeral position and anterior scapular positioning, limited AC Joint mobility Empty end feel PT-OP-J Posture/Palpation/Skin Start: 09/18/24 16:06 Freq: Status: Active Protocol: Document 09/19/24 14:31 NM (Rec: 09/19/24 15:38 NM [id number]) Palpation Assessment Location L shoulder Palpation Details tightness of posterior cuff, lat, pecs tenderness over long head biceps tendon, pec, posterior cuff, especially supraspinatus , AC joint 1st rib elevated L side distal biceps tendon palpable PT-OP-K Range of Motion Start: 09/18/24 16:06 Freq: Status: Active Protocol: Document 09/19/24 14:31 NM (Rec: 09/19/24 15:38 NM [id number]) Cervical Spine Range of Motion Cervical Spine Active Degrees Flexion 55 Extension 45 Rotation Left 80 Rotation Right 80 Lateral Flexion Left 45 Lateral Flexion Right 45 Shoulder Goniometric Range of Motion Shoulder L PROM Flexion 130 Abduction 110 External Rotation at 90 degrees 60 Abduction External Rotation at 0 degrees Abduction 60 Comments limited by pain Right Flexion 170 Abduction 170 External Rotation at 90 degrees 90 Abduction Left Flexion 95 Abduction 85 External Rotation at 90 degrees 60 Abduction PT-OP-L Special Tests Start: 09/18/24 16:06 Freq: Status: Active Protocol: Document 09/19/24 14:31 NM (Rec: 09/19/24 15:38 NM [id number]) Special Tests Cervical Spine Special Tests Spurling's Test Test Results - Shoulder Special Tests Yergason's Biceps Test Results - Speed's Biceps Test Results - Boyer Endy Impingement Test Results + Hornblowers Sign Test Results + Drop Arm Rotator Cuff Test Results - Elevation Impingement Test Results + Empty Can Test Results + PT-OP-M Strength Start: 09/18/24 16:06 Freq: Status: Active Protocol: Document 09/19/24 14:31 NM (Rec: 09/19/24 15:38 NM [id number]) Shoulder Strength Shoulder Manual Muscle Testing Right Flexion 4+ Good+ Abduction (C5) 4+ Good+ External Rotation 4+ Good+ Internal Rotation 4+ Good+ Left Flexion 4- Good- Abduction (C5) 3+ Fair+ External Rotation 4- Good- Internal Rotation 4- Good- Comments mild pain with flex, IR; moderate pain with abd > ER Elbow/Forearm Strength Elbow and Forearm Manual Muscle Testing Right Flexion (C6) 4+ Good+ Extension (C7) 4+ Good+ Left Flexion (C6) 4- Good- Extension (C7) 4+ Good+ Comments pain with flexion at long head tendon PT-OP-Q Treatments Start: 09/18/24 16:06 Freq: Status: Active Protocol: Document 09/19/24 14:31 NM (Rec: 09/19/24 15:38 NM [id number]) Therapeutic Exercises Standing Exercises shoulder isometrics Standing Exercise Name HEP - 1. flex, 2. abd, 3. ER, 4. IR Side left Equipment Used towel roll at wall, into PT hand 1st for feedback Reps/Minutes 10x2 ea Comments inc time for set up, cueing for execution; submax, cued no pain w/ reps PT-OP-T Assessment and Plan Start: 09/18/24 16:06 Freq: Status: Active Protocol: Document 09/19/24 14:31 NM (Rec: 09/19/24 15:38 NM [id number]) Physical Therapy Assessment Rehab Potential Rehabilitation Potential Fair Evaluation Complexity Number of Personal Factors/Comorbidities 1-2 Number of Body Systems Impaired 1-2 Clinical Presentation at Evaluation Stable Impairments Impairments Activity Tolerance,Functional Activities,Functional Mobility ,Gait,Integument,Pain,Posture, ROM,Sensation,Soft Tissue Mobility,Strength,Transfers Other Concerns Age Related Concerns PMH: RA, latex allergy ( bandaids only); surgeries: gall bladder removed, hernia repair Barriers to Rehabilitation Pt has recently had MRI on 09/17. Planning to follow up with ortho specialist on 10/04 in order to determine further assessment Goals Four Impairment decreased L shoulder strength Short Term Goal (STG) Pt will increase L shoulder flex, ER, IR strength to at least 4/5 MMT STG Duration 10 weeks [facility] Goal (LTG) Pt will report that she is able to carry laundry basket and lift groceries with pain < 4/10 in L shoulder to demonstrate improved symptom management LTG Duration 12 weeks Three Impairment limitations in AROM ADLs [employer] Goal (LTG) Pt will improve L shoulder Apley ER to at least C7 in order to improve ability to perform grooming and dressing LTG Duration 12 weeks Two Impairment limitations in AROM for reaching Short Term Goal (STG) Pt will improve L shoulder flexion AROM to at least 115 deg and L shoulder abduction to at least 110 deg in order to improve ability to perform reaching ADLs STG Duration 6 weeks [facility] Goal (LTG) Pt will improve L shoulder flexion AROM to at least 140 deg and L shoulder abduction to at least 140 deg in order to improve ability to perform reaching ADLs LTG Duration 12 weeks One Impairment not performing HEP [employer] Goal (LTG) Pt will be IND with HEP at leats 3x/wk in order to maximize progression with PT and transition to maintenance program upon discharge from PT LTG Duration 12 weeks Assessment Summary Assessment Pt is a 44 y.o. presenting with chronic L shoulder pain, worsening over the past year. Pt currently has limitations in global L shoulder ROM especially into flexion and abduction; decreased glenohumeral motion with impingement-type symptoms. PROM limited globally by pain, empty end feel for all motions. Weakness of L shoulder globally (especially abduction and ER) and biceps compared to R side. Symptoms reproduced with impingement and rotator cuff special tests . Tenderness to palpation over L AC joint, rotator cuff. Pt has soft tissue restrictions and elevated 1st ribs as well. Symptoms are consistent with dx. Pt planning to follow up with equipment specialist in several weeks to discuss imaging and to determine if further assessment needed. PT educated on exam findings and plan of care. Pt would benefit from skilled PT for L shoulder mobility and strengthening in order for pt to be able to perform ADLs/ IADLs with less pain in addition to improved symptom management and quality of life . Physical Therapy Plan Frequency and Duration Frequency of Treatment 2x/Week Duration of treatment (weeks) 12 Plan of Care Start Date 09/19/24 Plan of Care End Date 11/18/24 Therapeutic Interventions Therapeutic Interventions Gait Training,Home Exercise Program,Joint Mobilizations, Manual Therapy,Neuromuscular Re-education,Orthotic/ Prosthetic Management,Patient/ Caregiver Education,Self-Care/ Home Management,Sensory Integration,Soft Tissue Mobilization,Therapeutic Activities,Therapeutic Exercises Modalities Cold Pack/Ice Massage,Electric Stimulation,Hot Packs, Ultrasound,Vasopneumatic Devices Next Visit Focus/Plan Next Note Type Treatment Note Next Visit Plan review isometrics initiate ROM w/ dowel, ecc shoulder flexion ROM/band, scapular activation, rows, periscapular strengthenign Manual: STM, joint mobilizations L GHJ, ACJ, ribs
--- NOTE | 2024-09-19 16:00 | PT.OPPOC ---
Physical, Occupational & Speech Therapy At [facility] Current Diagnoses Primary osteoarthritis, left shoulder (09/19/24) Stiffness of left shoulder, not elsewhere classified (09/19/24) Impingement syndrome of left shoulder (09/19/24) Weakness (09/19/24) Visit Care Team Role Provider Type Kiel Ramírez MD Family Provider Physician Primary Care Provider Specialty: Family Practice Address: [address] [place] [address], [address], [place], [address] Email: [email or web address] Clemente Rice MD Attending Provider Non-Staff Referring Provider Specialty: Orthopedic Surgery Address: [facility] , [place], [address] Email: Plan Of Care PT-OP-B Current Condition Start: 09/18/24 16:06 Freq: Status: Active Protocol: Document 09/19/24 14:31 NM (Rec: 09/19/24 15:38 NM [id number]) Current Condition History of Current Condition Onset Date chronic History of Current Condition Pt presents with L shoulder pain. States chronic, hurts all the time now. Has been worsening for last 6 months to 1 year, last couple months can no longer ignore. States onset is gradual. She reports shoulder is not there, feels . Never gets pins and needles, not numb. Pt reports pain with picking up objects, sitting on a chair, sitting with puppy under arm, sleeping (wants to sleep on L side, hard to sleep on L side, lying on back), reaching. Over last 6 months, worsening with reaching, limited ROM. No injuries to L side, none to R shoulder. No neck pain or injuries. 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 Has seen Dr. Rice for ortho, had MRI on Tuesday; has appt on 10/04 to determine if operative or non-operative repair. Prior Treatments and Tests [facility] for MRI- planning to send results to clinic. Pt reports slight tear in supraspinatus and AC joint arthritis... lots of arthritis Treatment Goals Patient/Caregiver Goals improve ROM and decrease pain Current Functional Impairments (Reported) Functional Limitations- ADL's carrying laundry baskets PT-OP-T Assessment and Plan Start: 09/18/24 16:06 Freq: Status: Active Protocol: Document 09/19/24 14:31 NM (Rec: 09/19/24 15:38 NM [id number]) Physical Therapy Assessment Rehab Potential Rehabilitation Potential Fair Evaluation Complexity Number of Personal Factors/Comorbidities 1-2 Number of Body Systems Impaired 1-2 Clinical Presentation at Evaluation Stable Impairments Impairments Activity Tolerance,Functional Activities,Functional Mobility ,Gait,Integument,Pain,Posture, ROM,Sensation,Soft Tissue Mobility,Strength,Transfers Other Concerns Age Related Concerns PMH: RA, latex allergy ( bandaids only); surgeries: gall bladder removed, hernia repair Barriers to Rehabilitation Pt has recently had MRI on 09/17. Planning to follow up with ortho specialist on 10/04 in order to determine further assessment Goals Four Impairment decreased L shoulder strength Short Term Goal (STG) Pt will increase L shoulder flex, ER, IR strength to at least 4/5 MMT STG Duration 10 weeks [facility] Goal (LTG) Pt will report that she is able to carry laundry basket and lift groceries with pain < 4/10 in L shoulder to demonstrate improved symptom management LTG Duration 12 weeks Three Impairment limitations in AROM ADLs [facility] Goal (LTG) Pt will improve L shoulder Apley ER to at least C7 in order to improve ability to perform grooming and dressing LTG Duration 12 weeks Two Impairment limitations in AROM for reaching Short Term Goal (STG) Pt will improve L shoulder flexion AROM to at least 115 deg and L shoulder abduction to at least 110 deg in order to improve ability to perform reaching ADLs STG Duration 6 weeks Fashion Coordinator Goal (LTG) Pt will improve L shoulder flexion AROM to at least 140 deg and L shoulder abduction to at least 140 deg in order to improve ability to perform reaching ADLs LTG Duration 12 weeks One Impairment not performing HEP Fashion Coordinator Goal (LTG) Pt will be IND with HEP at leats 3x/wk in order to maximize progression with PT and transition to maintenance program upon discharge from PT LTG Duration 12 weeks Assessment Summary Assessment Pt is a 44 y.o. presenting with chronic L shoulder pain, worsening over the past year. Pt currently has limitations in global L shoulder ROM especially into flexion and abduction; decreased glenohumeral motion with impingement-type symptoms. PROM limited globally by pain, empty end feel for all motions. Weakness of L shoulder globally (especially abduction and ER) and biceps compared to R side. Symptoms reproduced with impingement and rotator cuff special tests . Tenderness to palpation over L AC joint, rotator cuff. Pt has soft tissue restrictions and elevated 1st ribs as well. Symptoms are consistent with dx. Pt planning to follow up with orthopedics nurse in several weeks to discuss imaging and to determine if further assessment needed. PT educated on exam findings and plan of care. Pt would benefit from skilled PT for L shoulder mobility and strengthening in order for pt to be able to perform ADLs/ IADLs with less pain in addition to improved symptom management and quality of life . Physical Therapy Plan Frequency and Duration Frequency of Treatment 2x/Week Duration of treatment (weeks) 12 Plan of Care Start Date 09/19/24 Plan of Care End Date 11/18/24 Therapeutic Interventions Therapeutic Interventions Gait Training,Home Exercise Program,Joint Mobilizations, Manual Therapy,Neuromuscular Re-education,Orthotic/ Prosthetic Management,Patient/ Caregiver Education,Self-Care/ Home Management,Sensory Integration,Soft Tissue Mobilization,Therapeutic Activities,Therapeutic Exercises Modalities Cold Pack/Ice Massage,Electric Stimulation,Hot Packs, Ultrasound,Vasopneumatic Devices Next Visit Focus/Plan Next Note Type Treatment Note Next Visit Plan review isometrics initiate ROM w/ dowel, ecc shoulder flexion ROM/band, scapular activation, rows, periscapular strengthenign Manual: STM, joint mobilizations L GHJ, ACJ, ribs Plan of Care Dates Plan of Care Start Date 09/19/24 Plan of Care End Date 11/18/24 Electronically Signed by: Mahi Og, PT 09/19/24 1600 If you are in agreement with this Plan of Care, please return a signed and dated copy. I have reviewed this Plan of Care and certify that the skilled therapy services above are required to meet the patient?s needs. Physician Signature Date Printed Name and Credentials Clinical Instructor Signature Printed Name and Credentials
--- NOTE | 2024-09-21 15:24 | PT.OTN ---
Current Diagnoses Primary osteoarthritis, left shoulder (09/21/24) Stiffness of left shoulder, not elsewhere classified (09/21/24) Impingement syndrome of left shoulder (09/21/24) Weakness (09/21/24) Physical Therapy Treatment Note PT-OP-A Visit Information Start: 09/18/24 16:06 Freq: Status: Active Protocol: Document 09/21/24 14:32 NM (Rec: 09/21/24 15:23 NM [id number]) Out-Patient Physical Therapy Visit Information Visit Information Visit Type Treatment Note Visit Start Time 14:33 Visit Stop Time 15:15 Visit Number 2 (post eval) Evaluation Information Evaluation Date 09/19/24 PT-OP-B Current Condition Start: 09/18/24 16:06 Freq: Status: Active Protocol: Document 09/19/24 14:31 NM (Rec: 09/19/24 15:38 NM [id number]) Current Condition History of Current Condition Onset Date chronic History of Current Condition Pt presents with L shoulder pain. States chronic, hurts all the time now. Has been worsening for last 6 months to 1 year, last couple months can no longer ignore. States onset is gradual. She reports shoulder is not there, feels . Never gets pins and needles, not numb. Pt reports pain with picking up objects, sitting on a chair, sitting with puppy under arm, sleeping (wants to sleep on L side, hard to sleep on L side, lying on back), reaching. Over last 6 months, worsening with reaching, limited ROM. No injuries to L side, none to R shoulder. No neck pain or injuries. 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 Has seen Dr. Rice for ortho, had MRI on Tuesday; has appt on 10/04 to determine if operative or non-operative repair. Prior Treatments and Tests [facility] for MRI- planning to send results to clinic. Pt reports slight tear in supraspinatus and AC joint arthritis... lots of arthritis Treatment Goals Patient/Caregiver Goals improve ROM and decrease pain Current Functional Impairments (Reported) Functional Limitations- ADL's carrying laundry baskets PT-OP-C Subjective Start: 09/18/24 16:06 Freq: Status: Active Protocol: Document 09/21/24 14:32 NM (Rec: 09/21/24 15:23 NM [id number]) OP-PT Subjective Patient Comments Patient Comments Pt reports a good day for her shoulder. She state it was angry after eval on Tue and work yesterday. 2-3/10 pain today. She tried isometrics at home, states made her tired and muscle achiness but not pain. PT-OP-E Functional Tests Start: 09/18/24 16:06 Freq: Status: Active Protocol: Document 09/19/24 14:31 NM (Rec: 09/19/24 15:38 NM [id number]) Functional Tests Apley's Scratch Test Action 1- Left pec Action 1- Right post ACJ Action 2- Left mid-C spine Action 2- Right T3 Action 3- Left T12 Action 3- Right T7 PT-OP-F Manual Assessment Start: 09/18/24 16:06 Freq: Status: Active Protocol: Document 09/19/24 14:31 NM (Rec: 09/19/24 15:38 NM [id number]) Manual Assessments Soft Tissue Assessment Soft Tissue Mobility Assessment Tightness of periscapulars, R cervical paraspinals, pec and lat Tenderness of L rotator cuff, long head biceps tendon Joint Mobility Assessment Joint Mobility Assessment Slower L scapulohumeral rhythm . Limitations in L inferior humeral glide, posterior humerus. Increased anterior humeral position and anterior scapular positioning, limited AC Joint mobility Empty end feel PT-OP-J Posture/Palpation/Skin Start: 09/18/24 16:06 Freq: Status: Active Protocol: Document 09/19/24 14:31 NM (Rec: 09/19/24 15:38 NM [id number]) Palpation Assessment Location L shoulder Palpation Details tightness of posterior cuff, lat, pecs tenderness over long head biceps tendon, pec, posterior cuff, especially supraspinatus , AC joint 1st rib elevated L side distal biceps tendon palpable PT-OP-K Range of Motion Start: 09/18/24 16:06 Freq: Status: Active Protocol: Document 09/19/24 14:31 NM (Rec: 09/19/24 15:38 NM [id number]) Cervical Spine Range of Motion Cervical Spine Active Degrees Flexion 55 Extension 45 Rotation Left 80 Rotation Right 80 Lateral Flexion Left 45 Lateral Flexion Right 45 Shoulder Goniometric Range of Motion Shoulder L PROM Flexion 130 Abduction 110 External Rotation at 90 degrees 60 Abduction External Rotation at 0 degrees Abduction 60 Comments limited by pain Right Flexion 170 Abduction 170 External Rotation at 90 degrees 90 Abduction Left Flexion 95 Abduction 85 External Rotation at 90 degrees 60 Abduction PT-OP-L Special Tests Start: 09/18/24 16:06 Freq: Status: Active Protocol: Document 09/19/24 14:31 NM (Rec: 09/19/24 15:38 NM [id number]) Special Tests Cervical Spine Special Tests Spurling's Test Test Results - Shoulder Special Tests Tonyrgabrian's Biceps Test Results - Speed's Biceps Test Results - Boyer Endy Impingement Test Results + Hornblowers Sign Test Results + Drop Arm Rotator Cuff Test Results - Elevation Impingement Test Results + Empty Can Test Results + PT-OP-M Strength Start: 09/18/24 16:06 Freq: Status: Active Protocol: Document 09/19/24 14:31 NM (Rec: 09/19/24 15:38 NM [id number]) Shoulder Strength Shoulder Manual Muscle Testing Right Flexion 4+ Good+ Abduction (C5) 4+ Good+ External Rotation 4+ Good+ Internal Rotation 4+ Good+ Left Flexion 4- Good- Abduction (C5) 3+ Fair+ External Rotation 4- Good- Internal Rotation 4- Good- Comments mild pain with flex, IR; moderate pain with abd > ER Elbow/Forearm Strength Elbow and Forearm Manual Muscle Testing Right Flexion (C6) 4+ Good+ Extension (C7) 4+ Good+ Left Flexion (C6) 4- Good- Extension (C7) 4+ Good+ Comments pain with flexion at long head tendon PT-OP-Q Treatments Start: 09/18/24 16:06 Freq: Status: Active Protocol: Document 09/21/24 14:32 NM (Rec: 09/21/24 15:23 NM [id number]) Therapeutic Exercises Supine Exercises L shoulder AAROM Supine Exercise Name 1. flex, 2. abd, 3. ER Side left Equipment Used R assist L with dowel Reps/Minutes 10 ea w/ 2 hold at end range Comments cued pain free ROM; flex 140 deg, 90 abd, Standing Exercises pec stretch Standing Exercise Name low pec stretch Side bilateral Equipment Used at doorway Reps/Minutes 2x30 ea Comments cued slight step back for comfort shoulder isometrics Standing Exercise Name HEP - 1. flex, 2. abd, 3. ER, 4. IR Side left Equipment Used w/ ball at wall, into PT hand 1st for feedback Reps/Minutes 10x2 ea Comments cue set up; submax, cued no pain w/ reps Manual Therapy Treatment Consent Patient gave verbal consent for manual Yes treatment Soft Tissue Mobilization L shoulder Body Location post cuff, periscapulars, pec, lat, rhomboid Mobilization Type Rolling,Sustained Pressure Intensity/Depth Moderate Body Position sidelying,supine Joint Mobilizations Ribs Joint L 1st rib Direction caudal Grade II Body Position Supine Reps/Duration 10 Comments Monitored for pain scapulothoracic Joint L scapular Direction elev/dep, retract/protract Grade II Body Position Sidelying Reps/Duration 2x10 ea Comments Monitored for pain. Limited mobility into depression and retraction. Pain reported close to 20th rep, d/c for rest of session L GH Joint Direction post, inf Grade III Body Position Supine Reps/Duration 3x30 Comments Monitored for pain. Limitations in post and inf glide. Inferior glide most limited at humerus PT-OP-T Assessment and Plan Start: 09/18/24 16:06 Freq: Status: Active Protocol: Document 09/21/24 14:32 NM (Rec: 09/21/24 15:23 NM [id number]) Physical Therapy Assessment Goals Four Impairment decreased L shoulder strength Short Term Goal (STG) Pt will increase L shoulder flex, ER, IR strength to at least 4/5 MMT STG Duration 10 weeks Scrap Drop Operator Goal (LTG) Pt will report that she is able to carry laundry basket and lift groceries with pain < 4/10 in L shoulder to demonstrate improved symptom management LTG Duration 12 weeks Three Impairment limitations in AROM ADLs Care Home Goal (LTG) Pt will improve L shoulder Apley ER to at least C7 in order to improve ability to perform grooming and dressing LTG Duration 12 weeks Two Impairment limitations in AROM for reaching Short Term Goal (STG) Pt will improve L shoulder flexion AROM to at least 115 deg and L shoulder abduction to at least 110 deg in order to improve ability to perform reaching ADLs STG Duration 6 weeks Scrap Drop Operator Goal (LTG) Pt will improve L shoulder flexion AROM to at least 140 deg and L shoulder abduction to at least 140 deg in order to improve ability to perform reaching ADLs LTG Duration 12 weeks One Impairment not performing HEP Care Home Goal (LTG) Pt will be IND with HEP at leats 3x/wk in order to maximize progression with PT and transition to maintenance program upon discharge from PT LTG Duration 12 weeks Assessment Summary Assessment Pt reports 4/10 L shoulder pain at end of session. Initiated L GHJ mobilizations to improve ROM. Still limited with humeral translation for both posterior and inferior glide. Decreased scapular mobility, limited with depression and retraction; has 1 instance of pain with mobilizations so discontinued during rest of session; will continue to evaluate. L shoulder AAROM improves to 140 deg supine, has pain at 100 deg but decreased with increased ROM. Cueing still needed for setup for isometrics, still submaximal; helps manage pain. Trialed pec stretch, pt feels appropriately. Pt would benefit from skilled PT for L shoulder mobility and strengthening in order to improve symptom management in addition to lifting, reaching, and carrying ADLs. Physical Therapy Plan Frequency and Duration Frequency of Treatment 2x/Week Duration of treatment (weeks) 12 Plan of Care Start Date 09/19/24 Plan of Care End Date 11/18/24 Therapeutic Interventions Therapeutic Interventions Gait Training,Home Exercise Program,Joint Mobilizations, Manual Therapy,Neuromuscular Re-education,Orthotic/ Prosthetic Management,Patient/ Caregiver Education,Self-Care/ Home Management,Sensory Integration,Soft Tissue Mobilization,Therapeutic Activities,Therapeutic Exercises Modalities Cold Pack/Ice Massage,Electric Stimulation,Hot Packs, Ultrasound,Vasopneumatic Devices Next Visit Focus/Plan Next Note Type Treatment Note Next Visit Plan review isometrics if needed- trial banded corky. scapular activation -progress to rows, low rows and periscap strength . AAROM w/ dowel > AROM. Manual: STM, joint mobilizations L GHJ lahsa post and inf glides, ACJ, ribs
--- NOTE | 2024-09-25 14:03 | PT.OTN ---
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 States chronic, hurts all the time now. Has been worsening for last 6 months to 1 year, last couple months can no longer ignore. States onset is gradual. She reports shoulder is not there, feels . Never gets pins and needles, not numb. Pt reports pain with picking up objects, sitting on a chair, sitting with puppy under arm, sleeping (wants to sleep on L side, hard to sleep on L side, lying on back), reaching. Over last 6 months, worsening with reaching, limited ROM. No injuries to L side, none to R shoulder. No neck pain or injuries. 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 Has seen Dr. Rice for ortho, had MRI on Tuesday; has appt on 10/04 to determine if operative or non-operative repair. Prior Treatments and Tests [facility] for MRI- planning to send results to clinic. Pt reports slight tear in supraspinatus and AC joint arthritis... lots of arthritis Treatment Goals Patient/Caregiver Goals improve ROM and decrease pain Current Functional Impairments (Reported) Functional Limitations- ADL's carrying laundry baskets PT-OP-C Subjective Start: 09/18/24 16:06 Freq: Status: Active Protocol: Document 09/25/24 13:04 AB (Rec: 09/25/24 14:03 AB [id number]) OP-PT Subjective Patient Comments Patient Comments Patient reports she is april same. Patient reports the exercises daily except for today, and they are going ok. Patient rates pain 2-3/10 start of session left shoulder . AROM 109 deg left shoulder start of session. PT-OP-E Functional Tests Start: 09/18/24 16:06 Freq: Status: Active Protocol: Document 09/19/24 14:31 NM (Rec: 09/19/24 15:38 NM [id number]) Functional Tests Apley's Scratch Test Action 1- Left pec Action 1- Right post ACJ Action 2- Left mid-C spine Action 2- Right T3 Action 3- Left T12 Action 3- Right T7 PT-OP-F Manual Assessment Start: 09/18/24 16:06 Freq: Status: Active Protocol: Document 09/19/24 14:31 NM (Rec: 09/19/24 15:38 NM [id number]) Manual Assessments Soft Tissue Assessment Soft Tissue Mobility Assessment Tightness of periscapulars, R cervical paraspinals, pec and lat Tenderness of L rotator cuff, long head biceps tendon Joint Mobility Assessment Joint Mobility Assessment Slower L scapulohumeral rhythm . Limitations in L inferior humeral glide, posterior humerus. Increased anterior humeral position and anterior scapular positioning, limited AC Joint mobility Empty end feel PT-OP-J Posture/Palpation/Skin Start: 09/18/24 16:06 Freq: Status: Active Protocol: Document 09/19/24 14:31 NM (Rec: 09/19/24 15:38 NM [id number]) Palpation Assessment Location L shoulder Palpation Details tightness of posterior cuff, lat, pecs tenderness over long head biceps tendon, pec, posterior cuff, especially supraspinatus , AC joint 1st rib elevated L side distal biceps tendon palpable PT-OP-K Range of Motion Start: 09/18/24 16:06 Freq: Status: Active Protocol: Document 09/19/24 14:31 NM (Rec: 09/19/24 15:38 NM [id number]) Cervical Spine Range of Motion Cervical Spine Active Degrees Flexion 55 Extension 45 Rotation Left 80 Rotation Right 80 Lateral Flexion Left 45 Lateral Flexion Right 45 Shoulder Goniometric Range of Motion Shoulder L PROM Flexion 130 Abduction 110 External Rotation at 90 degrees 60 Abduction External Rotation at 0 degrees Abduction 60 Comments limited by pain Right Flexion 170 Abduction 170 External Rotation at 90 degrees 90 Abduction Left Flexion 95 Abduction 85 External Rotation at 90 degrees 60 Abduction PT-OP-L Special Tests Start: 09/18/24 16:06 Freq: Status: Active Protocol: Document 09/19/24 14:31 NM (Rec: 09/19/24 15:38 NM [id number]) Special Tests Cervical Spine Special Tests Spurling's Test Test Results - Shoulder Special Tests Yergason's Biceps Test Results - Speed's Biceps Test Results - Boyer Endy Impingement Test Results + Hornblowers Sign Test Results + Drop Arm Rotator Cuff Test Results - Elevation Impingement Test Results + Empty Can Test Results + PT-OP-M Strength Start: 09/18/24 16:06 Freq: Status: Active Protocol: Document 09/19/24 14:31 NM (Rec: 09/19/24 15:38 NM [id number]) Shoulder Strength Shoulder Manual Muscle Testing Right Flexion 4+ Good+ Abduction (C5) 4+ Good+ External Rotation 4+ Good+ Internal Rotation 4+ Good+ Left Flexion 4- Good- Abduction (C5) 3+ Fair+ External Rotation 4- Good- Internal Rotation 4- Good- Comments mild pain with flex, IR; moderate pain with abd > ER Elbow/Forearm Strength Elbow and Forearm Manual Muscle Testing Right Flexion (C6) 4+ Good+ Extension (C7) 4+ Good+ Left Flexion (C6) 4- Good- Extension (C7) 4+ Good+ Comments pain with flexion at long head tendon PT-OP-Q Treatments Start: 09/18/24 16:06 Freq: Status: Active Protocol: Document 09/25/24 13:04 AB (Rec: 09/25/24 14:03 AB [id number]) Therapeutic Exercises Supine Exercises serratus punch Side bilateral Reps/Minutes X1 Comments reports discomfort left serratus area L shoulder AAROM Supine Exercise Name 1. flex AROM Side left Reps/Minutes X2 Comments limited by pain end ROM Sidelying Exercises open book Side bilateral Reps/Minutes X5 with hold for 5 breaths Comments verbal cues Sitting Exercises levator scap stretch Sitting Exercise Name holding seat of chair Side bilateral Reps/Minutes 30 sec each side Comments verbal and visual cues Standing Exercises row Side bilateral Resistance level one light blue band Equipment Used HEP Reps/Minutes X10 bilateral, X10 alternating Comments VC for set up, avoiding UT activation shoulder isometrics Standing Exercise Name HEP - 1. flex, 2. abd, 3. ER, 4. IR Side left Resistance level one light blue band for HEP Equipment Used progressed to isometric reactive Reps/Minutes X10 Comments verbal cues, monitored for pain Manual Therapy Treatment Consent Patient gave verbal consent for manual Yes treatment Soft Tissue Mobilization L shoulder Body Location post cuff, periscapulars, pec, lat, rhomboid Mobilization Type Cross-Friction,Rolling, Sustained Pressure Intensity/Depth Moderate Body Position sidelying,hooklying Comments also right biceps this session Joint Mobilizations ac Joint ac left Direction caudal Grade II Body Position Sitting Reps/Duration X10 Ribs Joint L 1st rib Direction caudal Grade II Body Position seated Reps/Duration 10 X1 second set grade I Comments Monitored for pain scapulothoracic Joint L scapular Direction elev/dep, retract/protract Grade III Body Position Sidelying Reps/Duration x10 ea Comments Monitored for pain. Limited mobility into depression > retraction. L GH Joint Direction post, inf Grade III Body Position Supine Reps/Duration X10 X 3 Comments Monitored for pain. PT-OP-R Modalities Start: 09/18/24 16:06 Freq: Status: Active Protocol: Document 09/25/24 13:04 AB (Rec: 09/25/24 14:03 AB [id number]) Hot Pack/Cold Pack Treatment left shoulder Location over biceps tendon/shoulder and lat Patient Position Hooklying Comments towel and pillow case posterior PT-OP-T Assessment and Plan Start: 09/18/24 16:06 Freq: Status: Active Protocol: Document 09/25/24 13:04 AB (Rec: 09/25/24 14:03 AB [id number]) Physical Therapy Assessment Goals Four Impairment decreased L shoulder strength Short Term Goal (STG) Pt will increase L shoulder flex, ER, IR strength to at least 4/5 MMT STG Duration 10 weeks Residential Goal (LTG) Pt will report that she is able to carry laundry basket and lift groceries with pain < 4/10 in L shoulder to demonstrate improved symptom management LTG Duration 12 weeks Three Impairment limitations in AROM ADLs Residential Goal (LTG) Pt will improve L shoulder Apley ER to at least C7 in order to improve ability to perform grooming and dressing LTG Duration 12 weeks Two Impairment limitations in AROM for reaching Short Term Goal (STG) Pt will improve L shoulder flexion AROM to at least 115 deg and L shoulder abduction to at least 110 deg in order to improve ability to perform reaching ADLs STG Duration 6 weeks Residential Goal (LTG) Pt will improve L shoulder flexion AROM to at least 140 deg and L shoulder abduction to at least 140 deg in order to improve ability to perform reaching ADLs LTG Duration 12 weeks One Impairment not performing HEP Paper Products Machine Operator Goal (LTG) Pt will be IND with HEP at leats 3x/wk in order to maximize progression with PT and transition to maintenance program upon discharge from PT LTG Duration 12 weeks Assessment Summary Assessment AROM left shoulder flexion 128 deg rating pain 4-5/10 end of session. Physical Therapy Plan Next Visit Focus/Plan Next Note Type Treatment Note Next Visit Plan assess khalida to banded corky. scapular activation -progress to low rows and periscap strength. AAROM w/ dowel > AROM. Manual: STM, joint mobilizations L GHJ lasha post and inf glides, ACJ, ribs
--- NOTE | 2024-10-03 15:41 | PT.OTN ---
Current Diagnoses Primary osteoarthritis, left shoulder (10/03/24) Stiffness of left shoulder, not elsewhere classified (10/03/24) Impingement syndrome of left shoulder (10/03/24) Weakness (10/03/24) Physical Therapy Treatment Note PT-OP-A Visit Information Start: 09/18/24 16:06 Freq: Status: Active Protocol: Document 10/03/24 14:35 NM (Rec: 10/03/24 15:41 NM [id number]) Out-Patient Physical Therapy Visit Information Visit Information Visit Type Treatment Note Visit Start Time 14:36 Visit Stop Time 15:15 Visit Number 4 (post eval) Evaluation Information Evaluation Date 09/19/24 PT-OP-B Current Condition Start: 09/18/24 16:06 Freq: Status: Active Protocol: Document 09/19/24 14:31 NM (Rec: 09/19/24 15:38 NM [id number]) Current Condition History of Current Condition Onset Date chronic History of Current Condition Pt presents with L shoulder pain. States chronic, hurts all the time now. Has been worsening for last 6 months to 1 year, last couple months can no longer ignore. States onset is gradual. She reports shoulder is not there, feels . Never gets pins and needles, not numb. Pt reports pain with picking up objects, sitting on a chair, sitting with puppy under arm, sleeping (wants to sleep on L side, hard to sleep on L side, lying on back), reaching. Over last 6 months, worsening with reaching, limited ROM. No injuries to L side, none to R shoulder. No neck pain or injuries. 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 Has seen Dr. Rice for ortho, had MRI on Tuesday; has appt on 10/04 to determine if operative or non-operative repair. Prior Treatments and Tests [facility] for MRI- planning to send results to clinic. Pt reports slight tear in supraspinatus and AC joint arthritis... lots of arthritis Treatment Goals Patient/Caregiver Goals improve ROM and decrease pain Current Functional Impairments (Reported) Functional Limitations- ADL's carrying laundry baskets PT-OP-C Subjective Start: 09/18/24 16:06 Freq: Status: Active Protocol: Document 10/03/24 14:35 NM (Rec: 10/03/24 15:41 NM [id number]) OP-PT Subjective Patient Comments Patient Comments Pt reports that her shoulder has been irriated following last session, was able to try her new exercises. Reports that 10/26 shoulder. Planning to follow up with orthopedic tomorrow PT-OP-E Functional Tests Start: 09/18/24 16:06 Freq: Status: Active Protocol: Document 09/19/24 14:31 NM (Rec: 09/19/24 15:38 NM [id number]) Functional Tests Apley's Scratch Test Action 1- Left pec Action 1- Right post ACJ Action 2- Left mid-C spine Action 2- Right T3 Action 3- Left T12 Action 3- Right T7 PT-OP-F Manual Assessment Start: 09/18/24 16:06 Freq: Status: Active Protocol: Document 09/19/24 14:31 NM (Rec: 09/19/24 15:38 NM [id number]) Manual Assessments Soft Tissue Assessment Soft Tissue Mobility Assessment Tightness of periscapulars, R cervical paraspinals, pec and lat Tenderness of L rotator cuff, long head biceps tendon Joint Mobility Assessment Joint Mobility Assessment Slower L scapulohumeral rhythm . Limitations in L inferior humeral glide, posterior humerus. Increased anterior humeral position and anterior scapular positioning, limited AC Joint mobility Empty end feel PT-OP-J Posture/Palpation/Skin Start: 09/18/24 16:06 Freq: Status: Active Protocol: Document 09/19/24 14:31 NM (Rec: 09/19/24 15:38 NM [id number]) Palpation Assessment Location L shoulder Palpation Details tightness of posterior cuff, lat, pecs tenderness over long head biceps tendon, pec, posterior cuff, especially supraspinatus , AC joint 1st rib elevated L side distal biceps tendon palpable PT-OP-K Range of Motion Start: 09/18/24 16:06 Freq: Status: Active Protocol: Document 09/19/24 14:31 NM (Rec: 09/19/24 15:38 NM [id number]) Cervical Spine Range of Motion Cervical Spine Active Degrees Flexion 55 Extension 45 Rotation Left 80 Rotation Right 80 Lateral Flexion Left 45 Lateral Flexion Right 45 Shoulder Goniometric Range of Motion Shoulder L PROM Flexion 130 Abduction 110 External Rotation at 90 degrees 60 Abduction External Rotation at 0 degrees Abduction 60 Comments limited by pain Right Flexion 170 Abduction 170 External Rotation at 90 degrees 90 Abduction Left Flexion 95 Abduction 85 External Rotation at 90 degrees 60 Abduction PT-OP-L Special Tests Start: 09/18/24 16:06 Freq: Status: Active Protocol: Document 09/19/24 14:31 NM (Rec: 09/19/24 15:38 NM [id number]) Special Tests Cervical Spine Special Tests Spurling's Test Test Results - Shoulder Special Tests Yergason's Biceps Test Results - Speed's Biceps Test Results - Boyer Endy Impingement Test Results + Hornblowers Sign Test Results + Drop Arm Rotator Cuff Test Results - Elevation Impingement Test Results + Empty Can Test Results + PT-OP-M Strength Start: 09/18/24 16:06 Freq: Status: Active Protocol: Document 09/19/24 14:31 NM (Rec: 09/19/24 15:38 NM [id number]) Shoulder Strength Shoulder Manual Muscle Testing Right Flexion 4+ Good+ Abduction (C5) 4+ Good+ External Rotation 4+ Good+ Internal Rotation 4+ Good+ Left Flexion 4- Good- Abduction (C5) 3+ Fair+ External Rotation 4- Good- Internal Rotation 4- Good- Comments mild pain with flex, IR; moderate pain with abd > ER Elbow/Forearm Strength Elbow and Forearm Manual Muscle Testing Right Flexion (C6) 4+ Good+ Extension (C7) 4+ Good+ Left Flexion (C6) 4- Good- Extension (C7) 4+ Good+ Comments pain with flexion at long head tendon PT-OP-Q Treatments Start: 09/18/24 16:06 Freq: Status: Active Protocol: Document 10/03/24 14:35 NM (Rec: 10/03/24 15:41 NM [id number]) Therapeutic Exercises Supine Exercises L shoulder AROM Supine Exercise Name flexion w/ slight self resistance w/ eccentric lowering Side left Equipment Used R assist L on descent Reps/Minutes 5 Comments decreased pain w/ descent when resisted miniband Side bilateral Resistance level 1 band Reps/Minutes 5 Sitting Exercises trapezius stretch Sitting Exercise Name holding plinth for tension Side bilateral Reps/Minutes 30 ea levator scap stretch Sitting Exercise Name holding seat of chair Side bilateral Reps/Minutes 30 ea Comments verbal and visual cues Standing Exercises stair slide Standing Exercise Name AAROM Side left Equipment Used pillow case Reps/Minutes 8 w/ slight hold 2 Manual Therapy Treatment Consent Patient gave verbal consent for manual Yes treatment Soft Tissue Mobilization L shoulder Body Location post cuff, periscapulars, pec, lat, rhomboid Mobilization Type Cross-Friction,Rolling, Sustained Pressure Intensity/Depth Moderate Body Position sidelying,hooklying Comments also right biceps this session Joint Mobilizations scapulothoracic Joint L scapular Direction elev/dep, retract/protract Grade III Body Position Sidelying Reps/Duration x10 ea Comments Monitored for pain. Limited mobility into depression > retraction. L GH Joint Direction post, inf Grade III Body Position Supine Reps/Duration 4x30 Comments Monitored for pain. Followed by functional movement. Better tolerance for mobilization with hand adjustment PT-OP-R Modalities Start: 09/18/24 16:06 Freq: Status: Active Protocol: Document 09/25/24 13:04 AB (Rec: 09/25/24 14:03 AB [id number]) Hot Pack/Cold Pack Treatment left shoulder Location over biceps tendon/shoulder and lat Patient Position Hooklying Comments towel and pillow case posterior PT-OP-T Assessment and Plan Start: 09/18/24 16:06 Freq: Status: Active Protocol: Document 10/03/24 14:35 NM (Rec: 10/03/24 15:41 NM [id number]) Physical Therapy Assessment Goals Four Impairment decreased L shoulder strength Short Term Goal (STG) Pt will increase L shoulder flex, ER, IR strength to at least 4/5 MMT STG Duration 10 weeks Halfway Goal (LTG) Pt will report that she is able to carry laundry basket and lift groceries with pain < 4/10 in L shoulder to demonstrate improved symptom management LTG Duration 12 weeks Three Impairment limitations in AROM ADLs Halfway Goal (LTG) Pt will improve L shoulder Apley ER to at least C7 in order to improve ability to perform grooming and dressing LTG Duration 12 weeks Two Impairment limitations in AROM for reaching Short Term Goal (STG) Pt will improve L shoulder flexion AROM to at least 115 deg and L shoulder abduction to at least 110 deg in order to improve ability to perform reaching ADLs STG Duration 6 weeks Halfway Goal (LTG) Pt will improve L shoulder flexion AROM to at least 140 deg and L shoulder abduction to at least 140 deg in order to improve ability to perform reaching ADLs LTG Duration 12 weeks One Impairment not performing HEP Sandstone Splitter Goal (LTG) Pt will be IND with HEP at least 3x/wk in order to maximize progression with PT and transition to maintenance program upon discharge from PT LTG Duration 12 weeks Assessment Summary Assessment Pt demos improvement in L shoulder flexion from 110 deg to 125 deg at end of session and L shoulder abduction from 90 deg to 95 deg. Pt has 6/10 shoulder pain at end of session. Still limited with humeral translation posteriorly and inferiorly due to decreased rotator cuff activation, which limits pt's ability to tolerate strengthening and to perform reaching ADLs. Good response to gentle rotator cuff self activation with eccentric lowering to reduce pain levels following shoulder elevation. Physical Therapy Plan Frequency and Duration Frequency of Treatment 2x/Week Duration of treatment (weeks) 12 Plan of Care Start Date 09/19/24 Plan of Care End Date 11/18/24 Therapeutic Interventions Therapeutic Interventions Gait Training,Home Exercise Program,Joint Mobilizations, Manual Therapy,Neuromuscular Re-education,Orthotic/ Prosthetic Management,Patient/ Caregiver Education,Self-Care/ Home Management,Sensory Integration,Soft Tissue Mobilization,Therapeutic Activities,Therapeutic Exercises Modalities Cold Pack/Ice Massage,Electric Stimulation,Hot Packs, Ultrasound,Vasopneumatic Devices Next Visit Focus/Plan Next Note Type Treatment Note Next Visit Plan Ask about ortho appt on 10/04. Progress corky shoulder strengthening as tolerated, progress to low rows/mid rows and increase bands as able. Trial wall slide with resistance. Can trial self mob with band Manual: STM, joint mobilizations L GHJ lasha post and inf glides, ACJ, ribs
--- NOTE | 2024-10-16 15:43 | PT.OTN ---
Current Diagnoses Primary osteoarthritis, left shoulder (10/16/24) Stiffness of left shoulder, not elsewhere classified (10/16/24) Impingement syndrome of left shoulder (10/16/24) Weakness (10/16/24) Physical Therapy Treatment Note PT-OP-A Visit Information Start: 09/18/24 16:06 Freq: Status: Active Protocol: Document 10/16/24 14:34 NM (Rec: 10/16/24 15:28 NM [id number]) Out-Patient Physical Therapy Visit Information Visit Information Visit Type Progress Note Visit Start Time 14:34 Visit Stop Time 15:14 Visit Number 5 (post eval) Evaluation Information Evaluation Date 09/19/24 PT-OP-B Current Condition Start: 09/18/24 16:06 Freq: Status: Active Protocol: Document 09/19/24 14:31 NM (Rec: 09/19/24 15:38 NM [id number]) Current Condition History of Current Condition Onset Date chronic History of Current Condition Pt presents with L shoulder pain. States chronic, hurts all the time now. Has been worsening for last 6 months to 1 year, last couple months can no longer ignore. States onset is gradual. She reports shoulder is not there, feels . Never gets pins and needles, not numb. Pt reports pain with picking up objects, sitting on a chair, sitting with puppy under arm, sleeping (wants to sleep on L side, hard to sleep on L side, lying on back), reaching. Over last 6 months, worsening with reaching, limited ROM. No injuries to L side, none to R shoulder. No neck pain or injuries. 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 Has seen Dr. Rice for ortho, had MRI on Tuesday; has appt on 10/04 to determine if operative or non-operative repair. Prior Treatments and Tests [facility] for MRI- planning to send results to clinic. Pt reports slight tear in supraspinatus and AC joint arthritis... lots of arthritis Treatment Goals Patient/Caregiver Goals improve ROM and decrease pain Current Functional Impairments (Reported) Functional Limitations- ADL's carrying laundry baskets PT-OP-C Subjective Start: 09/18/24 16:06 Freq: Status: Active Protocol: Document 10/16/24 14:34 NM (Rec: 10/16/24 15:28 NM [id number]) OP-PT Subjective Patient Comments Patient Comments Pt reports did not work last 3 days, states arm doing ok overall. She reports she rolled her shoulder and it got stuck this am. Got irritated with reading from holding book with her L shoulder. Pt saw ortho on 10/04, planning for surgery in a few months. She is getting pre-approval for surgery likely 2-[address] Rice wants her to continue with PT in meantime. She reports 3-4/10 pain in L shoulder. Performing HEP, states easy-medium difficulty PT-OP-E Functional Tests Start: 09/18/24 16:06 Freq: Status: Active Protocol: Document 09/19/24 14:31 NM (Rec: 09/19/24 15:38 NM [id number]) Functional Tests Apley's Scratch Test Action 1- Left pec Action 1- Right post ACJ Action 2- Left mid-C spine Action 2- Right T3 Action 3- Left T12 Action 3- Right T7 PT-OP-F Manual Assessment Start: 09/18/24 16:06 Freq: Status: Active Protocol: Document 09/19/24 14:31 NM (Rec: 09/19/24 15:38 NM [id number]) Manual Assessments Soft Tissue Assessment Soft Tissue Mobility Assessment Tightness of periscapulars, R cervical paraspinals, pec and lat Tenderness of L rotator cuff, long head biceps tendon Joint Mobility Assessment Joint Mobility Assessment Slower L scapulohumeral rhythm . Limitations in L inferior humeral glide, posterior humerus. Increased anterior humeral position and anterior scapular positioning, limited AC Joint mobility Empty end feel PT-OP-J Posture/Palpation/Skin Start: 09/18/24 16:06 Freq: Status: Active Protocol: Document 09/19/24 14:31 NM (Rec: 09/19/24 15:38 NM [id number]) Palpation Assessment Location L shoulder Palpation Details tightness of posterior cuff, lat, pecs tenderness over long head biceps tendon, pec, posterior cuff, especially supraspinatus , AC joint 1st rib elevated L side distal biceps tendon palpable PT-OP-K Range of Motion Start: 09/18/24 16:06 Freq: Status: Active Protocol: Document 10/16/24 14:34 NM (Rec: 10/16/24 15:28 NM [id number]) Shoulder Goniometric Range of Motion Shoulder L PROM Flexion 130 Abduction 110 External Rotation at 90 degrees 60 Abduction External Rotation at 0 degrees Abduction 60 Comments limited by pain Right Flexion 170 Abduction 170 External Rotation at 90 degrees 90 Abduction Left Flexion 120 Abduction 95 External Rotation at 90 degrees 60 Abduction PT-OP-L Special Tests Start: 09/18/24 16:06 Freq: Status: Active Protocol: Document 09/19/24 14:31 NM (Rec: 09/19/24 15:38 NM [id number]) Special Tests Cervical Spine Special Tests Spurling's Test Test Results - Shoulder Special Tests Yergason's Biceps Test Results - Speed's Biceps Test Results - Boyer Endy Impingement Test Results + Hornblowers Sign Test Results + Drop Arm Rotator Cuff Test Results - Elevation Impingement Test Results + Empty Can Test Results + PT-OP-M Strength Start: 09/18/24 16:06 Freq: Status: Active Protocol: Document 10/16/24 14:34 NM (Rec: 10/16/24 15:28 NM [id number]) Shoulder Strength Shoulder Manual Muscle Testing Right Flexion 4+ Good+ Abduction (C5) 4+ Good+ External Rotation 4+ Good+ Internal Rotation 4+ Good+ Left Flexion 4- Good- Abduction (C5) 3+ Fair+ External Rotation 4- Good- Internal Rotation 4- Good- Comments mild pain with flex, IR; moderate pain with abd > ER 10/16/24: no change from IE PT-OP-Q Treatments Start: 09/18/24 16:06 Freq: Status: Active Protocol: Document 10/16/24 14:34 NM (Rec: 10/16/24 15:28 NM [id number]) Therapeutic Exercises Sitting Exercises pulleys Sitting Exercise Name AAROM: 1. scaption (flex), 2. abduction Side left Equipment Used R assist L Reps/Minutes 3 minutes ea Comments gets looser w/ reps; 140 deg scaption, 95 deg abd (not better) Standing Exercises row Standing Exercise Name 1. mid rows, 2. low rows Side bilateral Resistance level 3 band Reps/Minutes 2x15 ea Comments verbal and tactile cues for control shoulder isometrics Standing Exercise Name ER, IR Side bilateral Resistance left Manual Therapy Treatment Consent Patient gave verbal consent for manual Yes treatment Soft Tissue Mobilization L shoulder Body Location post cuff, periscapulars, pec, lat, rhomboid, biceps, triceps Mobilization Type Cross-Friction,Rolling, Sustained Pressure Intensity/Depth Moderate Body Position sidelying,hooklying Comments Tenderness at biceps and triceps, mild improvement with soft tissue mobilization. Joint Mobilizations L GH Joint Direction post, inf Grade II Body Position Supine Reps/Duration 2x10 ea Comments Monitored for pain. Followed by functional movement. Better tolerance for mobilization with hand adjustment Self-Care/Home Management Treatment Education Patient Education Home Exercise Program,Joint Protection Other Education Recommended nate for HEP PT-OP-R Modalities Start: 09/18/24 16:06 Freq: Status: Active Protocol: Document 09/25/24 13:04 AB (Rec: 09/25/24 14:03 AB [id number]) Hot Pack/Cold Pack Treatment left shoulder Location over biceps tendon/shoulder and lat Patient Position Hooklying Comments towel and pillow case posterior PT-OP-T Assessment and Plan Start: 09/18/24 16:06 Freq: Status: Active Protocol: Document 10/16/24 14:34 NM (Rec: 10/16/24 15:28 NM [id number]) Physical Therapy Assessment Goals Four Impairment decreased L shoulder strength Short Term Goal (STG) Pt will increase L shoulder flex, ER, IR strength to at least 4/5 MMT 10/16/24: no change from IE STG Duration 10 weeks PROGRESSING 10/16/24 [employer] 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 Goal (LTG) Pt will report that she is able to carry laundry basket and lift groceries with pain < 4/10 in L shoulder to demonstrate improved symptom management LTG Duration 12 weeks Three Impairment limitations in AROM ADLs [employer]forcing [employer] 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 Goal (LTG) Pt will improve L shoulder Apley ER to at least C7 in order to improve ability to perform grooming and dressing LTG Duration 12 weeks Two Impairment limitations in AROM for reaching Short Term Goal (STG) Pt will improve L shoulder flexion AROM to at least 115 deg and L shoulder abduction to at least 110 deg in order to improve ability to perform reaching ADLs 10/16/24: 120 deg flex, 95 deg abd STG Duration 6 weeks PARTIALLY MET 10/16/24 [facility] Goal (LTG) Pt will improve L shoulder flexion AROM to at least 140 deg and L shoulder abduction to at least 140 deg in order to improve ability to perform reaching ADLs LTG Duration 12 weeks One Impairment not performing HEP Rein[employer] 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 Goal (LTG) Pt will be IND with HEP at least 3x/wk in order to maximize progression with PT and transition to maintenance program upon discharge from PT LTG Duration 12 weeks Assessment Summary Assessment Pt tolerated session fair, reports increased soreness at end of session. Progressed resistance for isometric ER/IR walkouts; ER more challenging for pt. Educated that can use lower resistance band at home for ER. Cueing needed for form to prevent compensations at shoulder and trunk. Better feedback for AAROM with pulleys over dowel (previous sessions), educated on recommended use at home, especially as pt planning to have surgery in future. Initiated periscapular strengthening with band. Physical Therapy Plan Frequency and Duration Frequency of Treatment 2x/Week Duration of treatment (weeks) 12 Plan of Care Start Date 09/19/24 Plan of Care End Date 11/18/24 Therapeutic Interventions Therapeutic Interventions Gait Training,Home Exercise Program,Joint Mobilizations, Manual Therapy,Neuromuscular Re-education,Orthotic/ Prosthetic Management,Patient/ Caregiver Education,Self-Care/ Home Management,Sensory Integration,Soft Tissue Mobilization,Therapeutic Activities,Therapeutic Exercises Modalities Cold Pack/Ice Massage,Electric Stimulation,Hot Packs, Ultrasound,Vasopneumatic Devices Next Visit Focus/Plan Next Note Type Treatment Note Next Visit Plan Review rows, low rows as needed. Assess khalida to inc resistance on corky ER/IR walkouts. Progress ROM and strength per tolerance with respect to rotator cuff. Initiate serratus strengthening in supine. Wall slides vs tables slides. pulleys, UBE Manual: STM, joint mobilizations L GHJ lasha post and inf glides, ACJ, ribs
--- NOTE | 2024-10-23 16:12 | PT.OTN ---
Current Diagnoses Primary osteoarthritis, left shoulder (10/23/24) Stiffness of left shoulder, not elsewhere classified (10/23/24) Impingement syndrome of left shoulder (10/23/24) Weakness (10/23/24) Physical Therapy Treatment Note PT-OP-A Visit Information Start: 09/18/24 16:06 Freq: Status: Active Protocol: Document 10/23/24 12:34 AB (Rec: 10/23/24 16:11 AB [id number]) Out-Patient Physical Therapy Visit Information Visit Information Visit Type Treatment Note Visit Start Time 15:18 Visit Stop Time 16:02 Visit Number 6 Number of PLANT CARE WORKER Visits 1 Evaluation Information Evaluation Date 09/19/24 PT-OP-B Current Condition Start: 09/18/24 16:06 Freq: Status: Active Protocol: Document 09/19/24 14:31 NM (Rec: 09/19/24 15:38 NM [id number]) Current Condition History of Current Condition Onset Date chronic History of Current Condition Pt presents with L shoulder pain. States chronic, hurts all the time now. Has been worsening for last 6 months to 1 year, last couple months can no longer ignore. States onset is gradual. She reports shoulder is not there, feels . Never gets pins and needles, not numb. Pt reports pain with picking up objects, sitting on a chair, sitting with puppy under arm, sleeping (wants to sleep on L side, hard to sleep on L side, lying on back), reaching. Over last 6 months, worsening with reaching, limited ROM. No injuries to L side, none to R shoulder. No neck pain or injuries. 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 Has seen Dr. Rice for ortho, had MRI on Tuesday; has appt on 10/04 to determine if operative or non-operative repair. Prior Treatments and Tests [facility] for MRI- planning to send results to clinic. Pt reports slight tear in supraspinatus and AC joint arthritis... lots of arthritis Treatment Goals Patient/Caregiver Goals improve ROM and decrease pain Current Functional Impairments (Reported) Functional Limitations- ADL's carrying laundry baskets PT-OP-C Subjective Start: 09/18/24 16:06 Freq: Status: Active Protocol: Document 01/07/25 12:34 AB (Rec: 10/23/24 16:11 AB [id number]) OP-PT Subjective Patient Comments Patient Comments Patient reports the shoulder is ok. If she is having a bad day and arm is super sore, she skips the exercise and gets back on track the next day.( attributes soreness to general activities not ex )Pt reports she might have to skip ex once a week. Patient rates pain at 1-2/10 lifting you into IR abd with thumb down. Patient reports she tires quicker with the inc resistance with ER /IR step outs AROM left shoulder flexion 120 deg start of session. PT-OP-E Functional Tests Start: 09/18/24 16:06 Freq: Status: Active Protocol: Document 09/19/24 14:31 NM (Rec: 09/19/24 15:38 NM [id number]) Functional Tests Apley's Scratch Test Action 1- Left pec Action 1- Right post ACJ Action 2- Left mid-C spine Action 2- Right T3 Action 3- Left T12 Action 3- Right T7 PT-OP-F Manual Assessment Start: 09/18/24 16:06 Freq: Status: Active Protocol: Document 09/19/24 14:31 NM (Rec: 09/19/24 15:38 NM [id number]) Manual Assessments Soft Tissue Assessment Soft Tissue Mobility Assessment Tightness of periscapulars, R cervical paraspinals, pec and lat Tenderness of L rotator cuff, long head biceps tendon Joint Mobility Assessment Joint Mobility Assessment Slower L scapulohumeral rhythm . Limitations in L inferior humeral glide, posterior humerus. Increased anterior humeral position and anterior scapular positioning, limited AC Joint mobility Empty end feel PT-OP-J Posture/Palpation/Skin Start: 09/18/24 16:06 Freq: Status: Active Protocol: Document 09/19/24 14:31 NM (Rec: 09/19/24 15:38 NM [id number]) Palpation Assessment Location L shoulder Palpation Details tightness of posterior cuff, lat, pecs tenderness over long head biceps tendon, pec, posterior cuff, especially supraspinatus , AC joint 1st rib elevated L side distal biceps tendon palpable PT-OP-K Range of Motion Start: 09/18/24 16:06 Freq: Status: Active Protocol: Document 10/16/24 14:34 NM (Rec: 10/16/24 15:28 NM [id number]) Shoulder Goniometric Range of Motion Shoulder L PROM Flexion 130 Abduction 110 External Rotation at 90 degrees 60 Abduction External Rotation at 0 degrees Abduction 60 Comments limited by pain Right Flexion 170 Abduction 170 External Rotation at 90 degrees 90 Abduction Left Flexion 120 Abduction 95 External Rotation at 90 degrees 60 Abduction PT-OP-L Special Tests Start: 09/18/24 16:06 Freq: Status: Active Protocol: Document 09/19/24 14:31 NM (Rec: 09/19/24 15:38 NM [id number]) Special Tests Cervical Spine Special Tests Spurling's Test Test Results - Shoulder Special Tests Yergason's Biceps Test Results - Speed's Biceps Test Results - Boyer Endy Impingement Test Results + Hornblowers Sign Test Results + Drop Arm Rotator Cuff Test Results - Elevation Impingement Test Results + Empty Can Test Results + PT-OP-M Strength Start: 09/18/24 16:06 Freq: Status: Active Protocol: Document 10/16/24 14:34 NM (Rec: 10/16/24 15:28 NM [id number]) Shoulder Strength Shoulder Manual Muscle Testing Right Flexion 4+ Good+ Abduction (C5) 4+ Good+ External Rotation 4+ Good+ Internal Rotation 4+ Good+ Left Flexion 4- Good- Abduction (C5) 3+ Fair+ External Rotation 4- Good- Internal Rotation 4- Good- Comments mild pain with flex, IR; moderate pain with abd > ER 10/16/24: no change from IE PT-OP-Q Treatments Start: 09/18/24 16:06 Freq: Status: Active Protocol: Document 10/23/24 12:34 AB (Rec: 10/23/24 16:11 AB [id number]) Therapeutic Exercises Supine Exercises L shoulder AROM Supine Exercise Name flexion HEP Side left Resistance AROM Reps/Minutes X10 with 10 sec hold serratus punch Supine Exercise Name HEP Side bilateral Resistance 1 lb Reps/Minutes X10 Comments verbal cues Standing Exercises row Standing Exercise Name 1. mid rows, 2. low rows Side bilateral Resistance level 3 band Reps/Minutes x15 ea Comments verbal and tactile cues for control shoulder isometrics Standing Exercise Name IR and ER Side left Resistance level 3 tan[place] green band Reps/Minutes X10 each Comments monitored for pain Manual Therapy Treatment Consent Patient gave verbal consent for manual Yes treatment Soft Tissue Mobilization L shoulder Body Location post cuff, periscapulars, pec, lat, rhomboid, biceps, Mobilization Type Cross-Friction,Rolling, Sustained Pressure Intensity/Depth Moderate Body Position sidelying,hooklying Comments ation. Joint Mobilizations ac Joint ac left Direction caudal Grade II Body Position Hooklying Reps/Duration X10 X2 Ribs Joint L 1st rib Direction caudal Grade II Body Position Sidelying Reps/Duration 10 X2 Comments Monitored for pain scapulothoracic Joint L scapular Direction elev/dep, retract/protract Grade III Body Position Sidelying Reps/Duration x10 ea Comments Monitored for pain. Limited mobility L GH Joint Direction post, inf Grade II Body Position Supine Reps/Duration 2x10 ea Comments hand adjustmen PT-OP-R Modalities Start: 09/18/24 16:06 Freq: Status: Active Protocol: Document 09/25/24 13:04 AB (Rec: 09/25/24 14:03 AB [id number]) Hot Pack/Cold Pack Treatment left shoulder Location over biceps tendon/shoulder and lat Patient Position Hooklying Comments towel and pillow case posterior PT-OP-T Assessment and Plan Start: 09/18/24 16:06 Freq: Status: Active Protocol: Document 10/23/24 12:34 AB (Rec: 10/23/24 16:11 AB [id number]) Physical Therapy Assessment Goals Four Impairment decreased L shoulder strength Short Term Goal (STG) Pt will increase L shoulder flex, ER, IR strength to at least 4/5 MMT 10/16/24: no change from IE STG Duration 10 weeks PROGRESSING 10/16/24 [facility] Goal (LTG) Pt will report that she is able to carry laundry basket and lift groceries with pain < 4/10 in L shoulder to demonstrate improved symptom management LTG Duration 12 weeks Three Impairment limitations in AROM ADLs [facility] Goal (LTG) Pt will improve L shoulder Apley ER to at least C7 in order to improve ability to perform grooming and dressing LTG Duration 12 weeks Two Impairment limitations in AROM for reaching Short Term Goal (STG) Pt will improve L shoulder flexion AROM to at least 115 deg and L shoulder abduction to at least 110 deg in order to improve ability to perform reaching ADLs 10/16/24: 120 deg flex, 95 deg abd STG Duration 6 weeks PARTIALLY MET 10/16/24 [facility] Goal (LTG) Pt will improve L shoulder flexion AROM to at least 140 deg and L shoulder abduction to at least 140 deg in order to improve ability to perform reaching ADLs LTG Duration 12 weeks One Impairment not performing HEP Facilities Director Goal (LTG) Pt will be IND with HEP at least 3x/wk in order to maximize progression with PT and transition to maintenance program upon discharge from PT LTG Duration 12 weeks Assessment Summary Assessment AROM left shoulder flexion 135 deg end of session rating pain 4-5/10. Good khalida to serratus punch this session able to add to HEP. Physical Therapy Plan Frequency and Duration Frequency of Treatment 2x/Week Duration of treatment (weeks) 12 Plan of Care Start Date 09/19/24 Plan of Care End Date 11/18/24 Next Visit Focus/Plan Next Note Type Treatment Note Next Visit Plan Review rows, low rows as needed. Progress ROM and strength per tolerance with respect to rotator cuff. Wall slides vs tables slides. [email or web address] perezE Manual: STM, joint mobilizations L GHJ lasha post and inf glides, ACJ, ribs
--- NOTE | 2024-10-30 15:38 | PT.OTN ---
Current Diagnoses Primary osteoarthritis, left shoulder (10/30/24) Stiffness of left shoulder, not elsewhere classified (10/30/24) Impingement syndrome of left shoulder (10/30/24) Weakness (10/30/24) Physical Therapy Treatment Note PT-OP-A Visit Information Start: 09/18/24 16:06 Freq: Status: Active Protocol: Document 10/30/24 13:00 NM (Rec: 10/30/24 13:47 NM [id number]) Out-Patient Physical Therapy Visit Information Visit Information Visit Type Treatment Note Visit Start Time 13:01 Visit Stop Time 13:45 Visit Number 7 Number of BIOINFORMATICS DEVELOPER Visits 0 PT-OP-B Current Condition Start: 09/18/24 16:06 Freq: Status: Active Protocol: Document 09/19/24 14:31 NM (Rec: 09/19/24 15:38 NM [id number]) Current Condition History of Current Condition Onset Date chronic History of Current Condition Pt presents with L shoulder pain. States chronic, hurts all the time now. Has been worsening for last 6 months to 1 year, last couple months can no longer ignore. States onset is gradual. She reports shoulder is not there, feels . Never gets pins and needles, not numb. Pt reports pain with picking up objects, sitting on a chair, sitting with puppy under arm, sleeping (wants to sleep on L side, hard to sleep on L side, lying on back), reaching. Over last 6 months, worsening with reaching, limited ROM. No injuries to L side, none to R shoulder. No neck pain or injuries. 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 Has seen Dr. Rice for ortho, had MRI on Tuesday; has appt on 10/04 to determine if operative or non-operative repair. Prior Treatments and Tests [facility] for MRI- planning to send results to clinic. Pt reports slight tear in supraspinatus and AC joint arthritis... lots of arthritis Treatment Goals Patient/Caregiver Goals improve ROM and decrease pain Current Functional Impairments (Reported) Functional Limitations- ADL's carrying laundry baskets PT-OP-C Subjective Start: 09/18/24 16:06 Freq: Status: Active Protocol: Document 10/30/24 13:00 NM (Rec: 10/30/24 13:47 NM [id number]) OP-PT Subjective Patient Comments Patient Comments Pt reports that she has had several rough nights of sleep due to pain in her shoulder. Now has L forearm pain. Pt still does not have a surgery date. PT-OP-E Functional Tests Start: 09/18/24 16:06 Freq: Status: Active Protocol: Document 09/19/24 14:31 NM (Rec: 09/19/24 15:38 NM [id number]) Functional Tests Apley's Scratch Test Action 1- Left pec Action 1- Right post ACJ Action 2- Left mid-C spine Action 2- Right T3 Action 3- Left T12 Action 3- Right T7 PT-OP-F Manual Assessment Start: 09/18/24 16:06 Freq: Status: Active Protocol: Document 09/19/24 14:31 NM (Rec: 09/19/24 15:38 NM [id number]) Manual Assessments Soft Tissue Assessment Soft Tissue Mobility Assessment Tightness of periscapulars, R cervical paraspinals, pec and lat Tenderness of L rotator cuff, long head biceps tendon Joint Mobility Assessment Joint Mobility Assessment Slower L scapulohumeral rhythm . Limitations in L inferior humeral glide, posterior humerus. Increased anterior humeral position and anterior scapular positioning, limited AC Joint mobility Empty end feel PT-OP-J Posture/Palpation/Skin Start: 09/18/24 16:06 Freq: Status: Active Protocol: Document 09/19/24 14:31 NM (Rec: 09/19/24 15:38 NM [id number]) Palpation Assessment Location L shoulder Palpation Details tightness of posterior cuff, lat, pecs tenderness over long head biceps tendon, pec, posterior cuff, especially supraspinatus , AC joint 1st rib elevated L side distal biceps tendon palpable PT-OP-K Range of Motion Start: 09/18/24 16:06 Freq: Status: Active Protocol: Document 10/16/24 14:34 NM (Rec: 10/16/24 15:28 NM [id number]) Shoulder Goniometric Range of Motion Shoulder L PROM Flexion 130 Abduction 110 External Rotation at 90 degrees 60 Abduction External Rotation at 0 degrees Abduction 60 Comments limited by pain Right Flexion 170 Abduction 170 External Rotation at 90 degrees 90 Abduction Left Flexion 120 Abduction 95 External Rotation at 90 degrees 60 Abduction PT-OP-L Special Tests Start: 09/18/24 16:06 Freq: Status: Active Protocol: Document 09/19/24 14:31 NM (Rec: 09/19/24 15:38 NM [id number]) Special Tests Cervical Spine Special Tests Spurling's Test Test Results - Shoulder Special Tests Tonyrevelin's Biceps Test Results - Speed's Biceps Test Results - Boyer Endy Impingement Test Results + Hornblowers Sign Test Results + Drop Arm Rotator Cuff Test Results - Elevation Impingement Test Results + Empty Can Test Results + PT-OP-M Strength Start: 09/18/24 16:06 Freq: Status: Active Protocol: Document 10/16/24 14:34 NM (Rec: 10/16/24 15:28 NM [id number]) Shoulder Strength Shoulder Manual Muscle Testing Right Flexion 4+ Good+ Abduction (C5) 4+ Good+ External Rotation 4+ Good+ Internal Rotation 4+ Good+ Left Flexion 4- Good- Abduction (C5) 3+ Fair+ External Rotation 4- Good- Internal Rotation 4- Good- Comments mild pain with flex, IR; moderate pain with abd > ER 10/16/24: no change from IE PT-OP-Q Treatments Start: 09/18/24 16:06 Freq: Status: Active Protocol: Document 10/30/24 13:00 NM (Rec: 10/30/24 13:47 NM [id number]) Therapeutic Exercises Supine Exercises rhythmic stabilization Supine Exercise Name flex,ext,ER,IR Side bilateral Equipment Used holding blue ball, long lever arm Reps/Minutes 2x60 Sitting Exercises pulleys Sitting Exercise Name AAROM: 1. scaption (flex), 2. abduction Side left Equipment Used R assist L Reps/Minutes 3 minutes ea Comments gets looser w/ reps; warm up Standing Exercises thoracic rotation Standing Exercise Name open book Side bilateral Equipment Used at wall Reps/Minutes 5 ea thoracic ext Side bilateral Equipment Used ball behind back at wall Reps/Minutes 10 pec stretch Standing Exercise Name low pec stretch w/ lateral flexion cervical spine MWM Side left Equipment Used at wall Reps/Minutes 60 ea Comments HEP Other Exercises pendulum Other Exercise Name HEP: fwd/bwd, medlat, CW/CCW circles Side left Equipment Used R arm supported on plinth Reps/Minutes 2x60 ea Therapeutic Activity Therapeutic Activity Post-op positioning/groomingADLS/IADLS Name in prep for upcoming surgery Comments Education and pt demonstration for donning/doffing shirts, using deodorant/cleaning L arm , grooming, pericare, etc Education and pt demos pendulum with arm supported. Increased time spent on set-up /positioning, passive ROM Education on don/doff sling ( sling not present) and use of opposite UE to provide support with use of pillows for support Education and set up on sleeping position in recliner for post op and current sleeping set up in sidelying for comfort Manual Therapy Treatment Consent Patient gave verbal consent for manual Yes treatment Soft Tissue Mobilization cervical spine Body Location LS, trap, paraspinals Mobilization Type Rolling,Sustained Pressure Intensity/Depth Moderate Body Position Sitting Comments Arms supported on pillows. Trigger point present at L LS, trap. Reduced with soft tissue mobilization but still not completely resolved. Performed with MWM into rotation/LF/flex L shoulder Body Location post cuff, periscapulars, pec, lat, rhomboid, biceps, forearm Mobilization Type Cross-Friction,Rolling, Sustained Pressure Intensity/Depth Superficial Body Position Hooklying Comments Tenderness and restrictions over biceps today and forearm. Reduced with gentle soft tissue mobilization, arm supported on pillow. Educated on use of soft tissue mobilization gently at home over biceps. Increased tingling into L forearm with pec mobilization today PT-OP-R Modalities Start: 09/18/24 16:06 Freq: Status: Active Protocol: Document 09/25/24 13:04 AB (Rec: 09/25/24 14:03 AB [id number]) Hot Pack/Cold Pack Treatment left shoulder Location over biceps tendon/shoulder and lat Patient Position Hooklying Comments towel and pillow case posterior PT-OP-T Assessment and Plan Start: 09/18/24 16:06 Freq: Status: Active Protocol: Document 10/30/24 13:00 NM (Rec: 10/30/24 13:47 NM [id number]) Physical Therapy Assessment Goals Four Impairment decreased L shoulder strength Short Term Goal (STG) Pt will increase L shoulder flex, ER, IR strength to at least 4/5 MMT 10/16/24: no change from IE STG Duration 10 weeks PROGRESSING 10/16/24 [facility] Goal (LTG) Pt will report that she is able to carry laundry basket and lift groceries with pain < 4/10 in L shoulder to demonstrate improved symptom management LTG Duration 12 weeks Three Impairment limitations in AROM ADLs Mcfp Goal (LTG) Pt will improve L shoulder Apley ER to at least C7 in order to improve ability to perform grooming and dressing LTG Duration 12 weeks Two Impairment limitations in AROM for reaching Short Term Goal (STG) Pt will improve L shoulder flexion AROM to at least 115 deg and L shoulder abduction to at least 110 deg in order to improve ability to perform reaching ADLs 10/16/24: 120 deg flex, 95 deg abd STG Duration 6 weeks PARTIALLY MET 10/16/24 [employer] Goal (LTG) Pt will improve L shoulder flexion AROM to at least 140 deg and L shoulder abduction to at least 140 deg in order to improve ability to perform reaching ADLs LTG Duration 12 weeks One Impairment not performing HEP Mcfp Goal (LTG) Pt will be IND with HEP at least 3x/wk in order to maximize progression with PT and transition to maintenance program upon discharge from PT LTG Duration 12 weeks Assessment Summary Assessment Emphasis today on ROM, thoracic mobility along kinetic chain, and education for upcoming surgery. Initiated pendulums and standing thoracic exercises at wall. Increased time and cueing spent on pendulums today for correct set up and execution. Education provided to pt about how to perform ADLs/IADLs with caregiver assist post-operatively, in addition to positioning for sleeping, sitting, and sling, etc. Increased soft tissue restrictions at cervical spine , periscapulars, and L biceps today; improved with manual treatment but not resolved. Good feedback for rhythmic stabilization today. PT and pt discussed discharge at next session vs extending plan of care to save pt's PT benefits for post-surgery. Pt and PT in agreement. Physical Therapy Plan Frequency and Duration Frequency of Treatment 2x/Week Duration of treatment (weeks) 12 Plan of Care Start Date 09/19/24 Plan of Care End Date 11/18/24 Therapeutic Interventions Therapeutic Interventions Gait Training,Home Exercise Program,Joint Mobilizations, Manual Therapy,Neuromuscular Re-education,Orthotic/ Prosthetic Management,Patient/ Caregiver Education,Self-Care/ Home Management,Sensory Integration,Soft Tissue Mobilization,Therapeutic Activities,Therapeutic Exercises Modalities Cold Pack/Ice Massage,Electric Stimulation,Hot Packs, Ultrasound,Vasopneumatic Devices Next Visit Focus/Plan Next Note Type Discharge Summary Next Visit Plan STM with ball at wall. Cont pec mobilization, thoracic mobility. Review rows, low rows as needed. Progress ROM and strength per tolerance with respect to rotator cuff. Wall slides vs tables slides. WALESKA garcia Manual: STM, joint mobilizations L GHJ lasha post and inf glides, ACJ, ribs
--- NOTE | 2024-11-15 15:35 | PT.OTN ---
Current Diagnoses Primary osteoarthritis, left shoulder (11/15/24) Stiffness of left shoulder, not elsewhere classified (11/15/24) Impingement syndrome of left shoulder (11/15/24) Weakness (11/15/24) Physical Therapy Treatment Note PT-OP-A Visit Information Start: 09/18/24 16:06 Freq: Status: Active Protocol: Document 11/15/24 13:01 NM (Rec: 11/15/24 14:32 NM [id number]) Out-Patient Physical Therapy Visit Information Visit Information Visit Type Discharge Summary Visit Start Time 13:03 Visit Stop Time 13:45 Visit Number 8 Evaluation Information Evaluation Date 09/19/24 PT-OP-B Current Condition Start: 09/18/24 16:06 Freq: Status: Active Protocol: Document 09/19/24 14:31 NM (Rec: 09/19/24 15:38 NM [id number]) Current Condition History of Current Condition Onset Date chronic History of Current Condition Pt presents with L shoulder pain. States chronic, hurts all the time now. Has been worsening for last 6 months to 1 year, last couple months can no longer ignore. States onset is gradual. She reports shoulder is not there, feels . Never gets pins and needles, not numb. Pt reports pain with picking up objects, sitting on a chair, sitting with puppy under arm, sleeping (wants to sleep on L side, hard to sleep on L side, lying on back), reaching. Over last 6 months, worsening with reaching, limited ROM. No injuries to L side, none to R shoulder. No neck pain or injuries. 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 Has seen Dr. Rice for ortho, had MRI on Tuesday; has appt on 10/04 to determine if operative or non-operative repair. Prior Treatments and Tests [facility] for MRI- planning to send results to clinic. Pt reports slight tear in supraspinatus and AC joint arthritis... lots of arthritis Treatment Goals Patient/Caregiver Goals improve ROM and decrease pain Current Functional Impairments (Reported) Functional Limitations- ADL's carrying laundry baskets PT-OP-C Subjective Start: 09/18/24 16:06 Freq: Status: Active Protocol: Document 11/15/24 13:01 NM (Rec: 11/15/24 14:32 NM [id number]) OP-PT Subjective Patient Comments Patient Comments Pt reports that her L shoulder has been feeling better but feels like she is able to do her exercises and sleep better . She reports that her arms are falling asleep, which is new. Occurs when she is sleeping, starts on L side then rolls over to R side or onto stomach. Will have surgery on 01/02. Planning to discharge from PT today with ROM/strength program to maximize visits until surgery; will get new PT referral from ortho surgeon PT-OP-E Functional Tests Start: 09/18/24 16:06 Freq: Status: Active Protocol: Document 09/19/24 14:31 NM (Rec: 09/19/24 15:38 NM [id number]) Functional Tests Apley's Scratch Test Action 1- Left pec Action 1- Right post ACJ Action 2- Left mid-C spine Action 2- Right T3 Action 3- Left T12 Action 3- Right T7 PT-OP-F Manual Assessment Start: 09/18/24 16:06 Freq: Status: Active Protocol: Document 09/19/24 14:31 NM (Rec: 09/19/24 15:38 NM [id number]) Manual Assessments Soft Tissue Assessment Soft Tissue Mobility Assessment Tightness of periscapulars, R cervical paraspinals, pec and lat Tenderness of L rotator cuff, long head biceps tendon Joint Mobility Assessment Joint Mobility Assessment Slower L scapulohumeral rhythm . Limitations in L inferior humeral glide, posterior humerus. Increased anterior humeral position and anterior scapular positioning, limited AC Joint mobility Empty end feel PT-OP-J Posture/Palpation/Skin Start: 09/18/24 16:06 Freq: Status: Active Protocol: Document 09/19/24 14:31 NM (Rec: 09/19/24 15:38 NM [id number]) Palpation Assessment Location L shoulder Palpation Details tightness of posterior cuff, lat, pecs tenderness over long head biceps tendon, pec, posterior cuff, especially supraspinatus , AC joint 1st rib elevated L side distal biceps tendon palpable PT-OP-K Range of Motion Start: 09/18/24 16:06 Freq: Status: Active Protocol: Document 11/15/24 13:01 NM (Rec: 11/15/24 14:32 NM [id number]) Shoulder Goniometric Range of Motion Shoulder L PROM Flexion 130 Abduction 110 External Rotation at 90 degrees 60 Abduction External Rotation at 0 degrees Abduction 60 Comments limited by pain Right Flexion 170 Abduction 170 External Rotation at 90 degrees 90 Abduction Left Flexion 120 Abduction 130 External Rotation at 90 degrees 60 Abduction PT-OP-L Special Tests Start: 09/18/24 16:06 Freq: Status: Active Protocol: Document 09/19/24 14:31 NM (Rec: 09/19/24 15:38 NM [id number]) Special Tests Cervical Spine Special Tests Spurling's Test Test Results - Shoulder Special Tests Yergason's Biceps Test Results - Speed's Biceps Test Results - Boyer Endy Impingement Test Results + Hornblowers Sign Test Results + Drop Arm Rotator Cuff Test Results - Elevation Impingement Test Results + Empty Can Test Results + PT-OP-M Strength Start: 09/18/24 16:06 Freq: Status: Active Protocol: Document 11/15/24 13:01 NM (Rec: 11/15/24 14:32 NM [id number]) Shoulder Strength Shoulder Manual Muscle Testing Right Flexion 4+ Good+ Abduction (C5) 4+ Good+ External Rotation 4+ Good+ Internal Rotation 4+ Good+ Left Flexion 4- Good- Abduction (C5) 4- Good- External Rotation 4- Good- Internal Rotation 4- Good- Comments mild pain with flex, IR; moderate pain with abd > ER 10/16/24: no change from IE 11/15/24: abd improved to 4-/5 MMT PT-OP-Q Treatments Start: 09/18/24 16:06 Freq: Status: Active Protocol: Document 11/15/24 13:01 NM (Rec: 11/15/24 14:32 NM [id number]) Cardio Equipment Upper Body Ergometer (UBE) Duration (Minutes) 4 RPM 144 Seat Position 21 Height 3.5 Other bwd only; no pain Therapeutic Exercises Sitting Exercises pulleys Sitting Exercise Name AAROM: 1. scaption (flex), 2. abduction Side left Equipment Used R assist L Reps/Minutes 3 minutes ea Standing Exercises row Standing Exercise Name low row Side bilateral Resistance level 3 band Reps/Minutes x15 ea Comments improved scapular control shoulder isometrics Standing Exercise Name 1. IR walkout, 2. ER walkout, 3. flex at wall Side left Resistance level 3 anvik green band > orange level 2 band Reps/Minutes 1. 10, 2. 10, 3. 10x2 Comments monitored for pain; cued form, submaximal Other Exercises pendulum Other Exercise Name HEP: fwd/bwd, med/lat, CW/CCW circles Side left Equipment Used R arm supported on plinth Reps/Minutes 2x60 ea Therapeutic Activity Therapeutic Activity Post-op positioning/groomingADLS/IADLS Name in prep for upcoming surgery Reps/Minutes 15 min Comments Pt requesting review of education in preparation for upcoming pre-op appt. Education provided and then pt demonstratin. grooming, use of deodorant, shaving 2. donning/doffing shirts ( recommended button up or zip shirts, will use jacket or shawl over sling, recommend no bra). Education to pt on how to allow pt's mom to assist with dressing 3. pericare (recommended loose pants) Education and pt demo of pendulum with arm supported. Education on positioning for sleeping, sitting in chair or car/work. Education provided on donning/ doffing sling. Pt demos (no sling present) with set up using pillows on plinth, PT assist and use of opposite LE. Self-Care/Home Management Treatment Education Other Education Recommended that pt get PT referral to whatever clinic [facility] for surgery date so can start when surgeon recommended ; stop exercises post-op because will be provided new HEP at first PT visit PT-OP-R Modalities Start: 09/18/24 16:06 Freq: Status: Active Protocol: Document 09/25/24 13:04 AB (Rec: 09/25/24 14:03 AB [id number]) Hot Pack/Cold Pack Treatment left shoulder Location over biceps tendon/shoulder and lat Patient Position Hooklying Comments towel and pillow case posterior PT-OP-T Assessment and Plan Start: 09/18/24 16:06 Freq: Status: Active Protocol: Document 11/15/24 13:01 NM (Rec: 11/15/24 14:32 NM [id number]) Physical Therapy Assessment Goals Four Impairment decreased L shoulder strength Short Term Goal (STG) Pt will increase L shoulder flex, ER, IR strength to at least 4/5 MMT 10/16/24: no change from IE STG Duration 10 weeks PROGRESSING 10/16/24 [place] Goal (LTG) Pt will report that she is able to carry laundry basket and lift groceries with pain < 4/10 in L shoulder to demonstrate improved symptom management 11/05/24: pt reports has not been lifting laundry baskets or groceries, but holds next to chest which helps LTG Duration 12 weeks NOT MET Three Impairment limitations in AROM ADLs Alf Goal (LTG) Pt will improve L shoulder Apley ER to at least C7 in order to improve ability to perform grooming and dressing 11/15/24: C7 LTG Duration 12 weeks MET Two Impairment limitations in AROM for reaching Short Term Goal (STG) Pt will improve L shoulder flexion AROM to at least 115 deg and L shoulder abduction to at least 110 deg in order to improve ability to perform reaching ADLs 10/16/24: 120 deg flex, 95 deg abd 11/15/24: 120 deg flex, 130 deg abd STG Duration 6 weeks MET [employer] Weaver Goal (LTG) Pt will improve L shoulder flexion AROM to at least 140 deg and L shoulder abduction to at least 140 deg in order to improve ability to perform reaching ADLs 11/15/24: 120 deg flex, 130 deg abd LTG Duration 12 weeks NOT MET One Impairment not performing HEP [employer] Goal (LTG) Pt will be IND with HEP at least 3x/wk in order to maximize progression with PT and transition to maintenance program upon discharge from PT 11/15/24: compliant every other day LTG Duration 12 weeks MET Progress Towards Goals Progress Towards Goals Progressing Toward Goals,Slow Progress due to Activity Tolerance,Slow Progress due to Medical Issues,Goals Met Progress Comments Met 2/4 PT goals; demos progress toward remaining goals. Limited by weakness and pain. Planning to have surgical repair in December Assessment Summary Assessment Pt tolerated session well with less soreness today during exercise. Emphasis on HEP review for ROM and strengthening in prep for surgery. Adjusted bands for pt comfort with exercises. Added flexion isometric to promote stability with arm elevation. Demos improved L shoulder abduction to 130 with less pain, but still limited to 120 deg flex due to pain/weakness . Increased time spent on education, demonstration and set up in prep for post-op ADL changes; pt able to demonstrate all with improved confidence. Physical Therapy Plan Frequency and Duration Frequency of Treatment 2x/Week Duration of treatment (weeks) 12 Plan of Care Start Date 09/19/24 Plan of Care End Date 11/18/24 Therapeutic Interventions Therapeutic Interventions Gait Training,Home Exercise Program,Joint Mobilizations, Manual Therapy,Neuromuscular Re-education,Orthotic/ Prosthetic Management,Patient/ Caregiver Education,Self-Care/ Home Management,Sensory Integration,Soft Tissue Mobilization,Therapeutic Activities,Therapeutic Exercises Modalities Cold Pack/Ice Massage,Electric Stimulation,Hot Packs, Ultrasound,Vasopneumatic Devices Discharge Physical Therapy Discharge Reasons Patient Request Discharge Comments Pt will be having surgery. D/c to maximize PT benefits for post-op. Educated to get new referral [facility] for post-op to schedule when recommended by surgeon Next Visit Focus/Plan Next Note Type Discharge Summary Next Visit Plan discharge from PT
== END 2024-11-16 09:19 | disposition home or self-care (01) ==
LOC: PHYS 13:00
PROVIDERS: Family Provider Family Medicine; PCP Family Medicine; Referring Provider Orthopaedic Surgery; Visit Provider Orthopaedic Surgery
DX: M75.42 Impingement syndrome of left shoulder (principal); M19.012 Primary osteoarthritis, left shoulder; M25.612 Stiffness of left shoulder, not elsewhere classified; R53.1 Weakness
CPT/HCPCS: 97110; 97140; 97161; 97530

== ENCOUNTER 2024-11-26 06:54 | Observation (INO) | payer OTHER, SELFPAY ==
[2024-11-26] VITALS (137 sets, daily range): BP systolic 103–154; BP diastolic 57–93; PULSE 51–168; RESP 9–44; TEMP 36.6; O2SAT 91–100; BMI 47.1
--- NOTE | 2024-11-26 07:16 | EKG_ITS ---
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
--- NOTE | 2024-11-26 07:16 | DI.RAD.S_ITS ---
PROCEDURE: XR CHEST 1V INDICATIONS: chest pain TECHNIQUE: One view of the chest was acquired. COMPARISON: None. FINDINGS: Surgical changes and devices: None. Lungs and pleura: Lungs are clear. Low lung volumes. No pleural effusions or pneumothorax. Mediastinum: Mediastinal contours appear normal. Heart size is prominent. Bones and chest wall: No suspicious bony lesions. Overlying soft tissues appear unremarkable. IMPRESSION: Prominent heart size. No acute pulmonary process. Low lung volumes. Dictated by: Deangelo Jean Baptiste M.D. on 11/26/2024 at 8:22 Approved by: Deangelo Jean Baptiste M.D. on 11/26/2024 at 8:23
--- NOTE | 2024-11-26 07:25 | PC.NURSE ---
Pt has no history of cardiac disease. She awoke at 0515 and felt like her heart was beating fast and palpitations. No SOB. No chest pain. No dizziness or lightheaded. She endorses a history of similar transient episodes that last less than a minute and she had not sought medical treatment for prior. Pt appears calm, reading a book while sitting up in bed.
--- NOTE | 2024-11-26 07:38 | ED_ITS ---
HPI - Arrhythmia/Palpitations General Chief Complaint: Arrhythmia/Palpitations Stated Complaint: racing pulse Time Seen by Provider: 11/26/24 07:16 Source: patient Mode of arrival: Ambulatory History of Present Illness HPI narrative: 44-year-old female with no history prior atrial fibrillation awoke this morning 0600 with fast heart rate beat sensation, she has had irregular heartbeat sensations for many months, recalls fast heart rate problem associated with prednisone in the past, prior EKGs not showing atrial fibrillation. No recent cough cold fever chills illness, no diarrhea, no new or change in prescription medications. She has started new vitamin supplements, otherwise no other [id number] new medications. She does not drink coffee or caffeine products. No use of energy drinks. No use of decongestants. Denies alcohol or other drug use. No history of blood clots to legs or lungs, no shortness of breath or leg pain/swelling symptoms. No fevers or chills. No nausea or vomiting. Related Data Previous Rx's Medication Instructions Recorded aspirin 325 mg tablet 325 mg PO DAILY #90 tabs 11/26/24 diltiazem HCl 120 mg 120 mg PO DAILY #30 caps 11/26/24 capsule,extended release 24 hr Allergies Allergy/AdvReac Type Severity Reaction Status Date / Time morphine Allergy Mild HIVES Verified 03/20/24 07:58 Patient History Medical History Morbid obesity with body mass index (BMI) of 45.0 to 49.9 in adult (10/15/16) Raynaud's disease without gangrene Amenorrhea (05/03/02) Rosacea Arthritis Depression Hidradenitis suppurativa Obesity Family History Grandmother Polymyalgia rheumatica Mother Hypertension Family/Other Polymyalgia rheumatica Son Autism Social History household members: family Smoking Status: Never smoker alcohol intake: current Smoking Status: Never smoker alcohol intake frequency: holidays/special occasions only Exam Narrative Exam Narrative: GENERAL: Well-developed patient, in mild distress. HEAD: Atraumatic. Normocephalic. EYES: Pupils equal round and reactive. Extraocular motions intact. No scleral icterus. No injection or drainage. ENT: Nose without bleeding, purulent drainage. Throat without erythema, tonsillar hypertrophy or exudate. Airway patent. NECK: Trachea midline. Non tender CARDIOVASCULAR: Fast rate irregular rhythm, without murmurs, gallops, or rubs. RESPIRATORY: Clear to auscultation. Breath sounds equal bilaterally. No wheezes, rales, or rhonchi. GASTROINTESTINAL: Abdomen soft, non-tender, nondistended. EXTREMITIES: No edema or joint tenderness. No calf pain or swelling. BACK: Nontender without deformity or crepitance. No flank tenderness. NEURO: AOx3. Motor functions grossly nonfocal SKIN: No rash or erythema of visible areas Initial Vital Signs Initial Vital Signs: Vital Signs Temperature 97.8 F 11/26/24 06:58 Pulse Rate 90 11/26/24 06:58 Respiratory Rate 16 11/26/24 06:58 Blood Pressure 120/89 11/26/24 06:58 Pulse Oximetry 100 11/26/24 06:58 Oxygen Delivery Method Room Air 11/26/24 06:58 Course Orders Ordered: Discontinued Medications Acetaminophen (Acetaminophen 325 Mg Tablet) 650 mg PO Q4H PRN PRN Reason: Fever/Mild Pain (1-3) Last Admin: 11/26/24 15:53 Dose: 650 mg Documented By: Admin: 11/26/24 10:06 Dose: 650 mg Documented By: Acetaminophen (Acetaminophen 325 Mg Tablet) 650 mg PO Q6H PRN PRN Reason: Fever/Mild Pain (1-3) Apixaban (Apixaban 5 Mg Tablet) 5 mg PO NOW ONE Stop: 11/26/24 09:29 Last Admin: 11/26/24 10:06 Dose: 5 mg Documented By: Diltiazem HCl (Diltiazem 25 Mg/5 Ml Sdv) 20 mg IV NOW ONE Stop: 11/26/24 07:22 Last Admin: 11/26/24 07:43 Dose: 20 mg Documented By: MARICRUZ Diltiazem HCl (Diltiazem Cd 120 Mg Cap) 120 mg PO NOW ONE Stop: 11/26/24 13:51 Last Admin: 11/26/24 14:22 Dose: 120 mg Documented By: DARREL Diltiazem HCl 125 mg/ Sodium (Chloride) 125 mls @ 5 mls/hr IV TITRATE GAEL; Protocol Last Titration: 11/26/24 14:52 Dose: 0 mg/hr, 0 mls/hr Documented By: Titration: 11/26/24 08:47 Dose: 10 mg/hr, 10 mls/hr Documented By: Titration: 11/26/24 08:10 Dose: 7.5 mg/hr, 7.5 mls/hr Documented By: Admin: 11/26/24 07:45 Dose: 5 mg/hr, 5 mls/hr Documented By: MARICRUZ Lorazepam (Lorazepam 1 Mg Tablet) 1 mg PO Q4HR PRN PRN Reason: Anxiety Naloxone HCl (Naloxone 0.4 Mg/Ml Vial) 0.2 mg IV Q2MIN PRN PRN Reason: Opiate Reversal Oxycodone HCl (Oxycodone Ir 5 Mg Tablet) 5 mg PO Q3H PRN PRN Reason: Pain, Moderate (4-6) Vital Signs Vital signs: Vital Signs - 8 hr 11/26/24 06:58 11/26/24 07:18 11/26/24 07:21 Temperature 97.8 F Pulse Rate 90 140 H 160 H Respiratory Rate 16 Blood Pressure 120/89 Pulse Oximetry 100 99 98 Oxygen Delivery Method Room Air 11/26/24 07:21 11/26/24 07:25 11/26/24 07:30 Temperature Pulse Rate 153 H 148 H Respiratory Rate 20 12 Blood Pressure 134/76 Pulse Oximetry 98 99 Oxygen Delivery Method 11/26/24 07:30 11/26/24 07:35 11/26/24 07:40 Temperature Pulse Rate 152 H 159 H Respiratory Rate 18 16 Blood Pressure 136/92 H Pulse Oximetry 98 98 Oxygen Delivery Method Room Air 11/26/24 07:43 11/26/24 07:45 11/26/24 07:45 Temperature Pulse Rate 168 H 149 H 146 H Respiratory Rate 13 Blood Pressure 154/83 H 154/83 H Pulse Oximetry 98 Oxygen Delivery Method 11/26/24 07:46 11/26/24 07:46 11/26/24 07:50 Temperature Pulse Rate 159 H 129 H Respiratory Rate 15 15 Blood Pressure 154/83 H Pulse Oximetry 97 98 Oxygen Delivery Method Room Air 11/26/24 07:52 11/26/24 07:52 11/26/24 07:55 Temperature Pulse Rate 118 H 104 H Respiratory Rate 14 14 Blood Pressure 138/79 Pulse Oximetry 98 96 Oxygen Delivery Method Room Air 11/26/24 07:55 11/26/24 07:57 11/26/24 07:57 Temperature Pulse Rate 101 H Respiratory Rate Blood Pressure 120/65 126/64 Pulse Oximetry 97 Oxygen Delivery Method 11/26/24 08:00 11/26/24 08:00 11/26/24 08:03 Temperature Pulse Rate 120 H Respiratory Rate 15 Blood Pressure 120/57 L 107/59 L Pulse Oximetry 96 Oxygen Delivery Method Room Air 11/26/24 08:03 11/26/24 08:05 11/26/24 08:06 Temperature Pulse Rate 101 H 113 H 96 H Respiratory Rate 12 12 10 L Blood Pressure Pulse Oximetry 95 96 96 Oxygen Delivery Method 11/26/24 08:06 11/26/24 08:09 11/26/24 08:09 Temperature Pulse Rate 133 H Respiratory Rate 22 Blood Pressure 116/58 L 117/70 Pulse Oximetry 97 Oxygen Delivery Method Room Air 11/26/24 08:10 11/26/24 08:13 11/26/24 08:13 Temperature Pulse Rate 121 H 117 H Respiratory Rate 15 11 L Blood Pressure 130/69 Pulse Oximetry 97 97 Oxygen Delivery Method 11/26/24 08:15 11/26/24 08:15 11/26/24 08:19 Temperature Pulse Rate 127 H 120 H Respiratory Rate 11 L 15 Blood Pressure 110/69 Pulse Oximetry 95 97 Oxygen Delivery Method Room Air 11/26/24 08:19 11/26/24 08:20 11/26/24 08:22 Temperature Pulse Rate 128 H 126 H Respiratory Rate 14 15 Blood Pressure 106/83 Pulse Oximetry 96 96 Oxygen Delivery Method 11/26/24 08:22 11/26/24 08:24 11/26/24 08:24 Temperature Pulse Rate 123 H Respiratory Rate 16 Blood Pressure 120/58 L 117/68 Pulse Oximetry 98 Oxygen Delivery Method 11/26/24 08:25 11/26/24 08:32 11/26/24 08:34 Temperature Pulse Rate 109 H 114 H 127 H Respiratory Rate 25 H 9 L Blood Pressure Pulse Oximetry 97 100 Oxygen Delivery Method Room Air 11/26/24 08:34 11/26/24 08:35 11/26/24 08:36 Temperature Pulse Rate 156 H Respiratory Rate 19 Blood Pressure 109/78 115/93 H Pulse Oximetry 100 Oxygen Delivery Method 11/26/24 08:36 11/26/24 08:40 11/26/24 08:40 Temperature Pulse Rate 154 H 149 H Respiratory Rate 15 15 Blood Pressure 119/77 Pulse Oximetry 99 100 Oxygen Delivery Method 11/26/24 08:42 11/26/24 08:42 11/26/24 08:45 Temperature Pulse Rate 135 H 153 H Respiratory Rate 15 16 Blood Pressure 138/75 Pulse Oximetry 99 99 Oxygen Delivery Method Room Air 11/26/24 08:50 11/26/24 08:55 11/26/24 09:00 Temperature Pulse Rate 144 H 104 H 126 H Respiratory Rate 15 17 12 Blood Pressure Pulse Oximetry 98 99 99 Oxygen Delivery Method Room Air 11/26/24 09:01 11/26/24 09:01 11/26/24 09:05 Temperature Pulse Rate 135 H 123 H Respiratory Rate 16 20 Blood Pressure 114/72 Pulse Oximetry 100 99 Oxygen Delivery Method 11/26/24 09:10 11/26/24 09:15 Temperature Pulse Rate 141 H 123 H Respiratory Rate 17 13 Blood Pressure Pulse Oximetry 100 99 Oxygen Delivery Method Room Air MDM - Arrhythmia/Palpitations Lab Data Attestation: I reviewed the patient's lab results. Lab results narrative: White blood cell count 7100, hemoglobin 11.8, platelets 707232. Sodium 139, potassium 4.2, serum CO2 26, BUN 14 with creatinine 0.73, glucose 99. HCG negative. Troponin negative/unmeasurable. Liver functions and lipase normal. Free T4 and TSH normal. Ethanol and UDS negative. 11/26/24 07:28 11/26/24 07:28 Labs: Lab Results 11/26/24 11/26/24 Range/Units 07:05 07:28 WBC 7.1 (4.5-11.0) X10^3/uL RBC 5.04 (4.0-5.2) X10^6/uL Hgb 11.8 L (12.0-16.0) g/dL Hct 36.3 (36-46) % MCV 72.0 L (80-100) fL MCH 23.5 L (26-34) PG MCHC 32.6 (30-36) % RDW 15.6 H (11.6-14.8) % Plt Count 265 (150-400) X10^3/uL Neut % (Auto) 70.9 (50-75) % Lymph % (Auto) 18.2 L (25-40) % [place] % (Auto) 7.3 (3-14) % Eos % (Auto) 0.8 L (2-4) % Baso % (Auto) 2.8 H (0-2) % Neut # (Auto) 5100 (1949-7156) /uL Lymph # (Auto) 1300 (9483-4676) /uL [place] # (Auto) 500 (0-900) /uL Eos # (Auto) 100 (0-450) /uL Baso # (Auto) 200 H (0-100) /uL Sodium 139 (137-145) mmol/L Potassium 4.2 (3.4-5.1) mmol/L Chloride 108 H (98-107) mmol/L Carbon Dioxide 26 (22-32) mmol/L BUN 14 (7-17) mg/dL Creatinine 0.73 (0.52-1.04) mg/dL Estimated GFR > 60 (>60) mL/min BUN/Creatinine Ratio 19.2 (6-22) Glucose 99 (70-100) mg/dL Calcium 9.2 (8.4-10.2) mg/dL Magnesium 2.0 (1.6-2.3) mg/dL Total Bilirubin 0.5 (0.2-1.3) mg/dL AST 25 (14-36) IU/L ALT 13 (<35) IU/L Alkaline Phosphatase 94 (38-126) U/L Total Creatine Kinase 60 (30-135) U/L Troponin I < 0.012 (0.01-0.034) ng/mL Total Protein 7.6 (6.3-8.2) g/dL Albumin 4.1 (3.5-5.0) g/dL Globulin 3.5 (1.7-4.1) g/dL Albumin/Globulin Ratio 1.2 (1.0-2.8) Lipase 67 (23-300) U/L TSH 2.93 (0.47-4.68) uIU/mL Free T4 1.03 (0.78-2.19) ng/dL HCG, Quant < 2.39 mIU/mL U Opiates 300ng/mL cut Negative (Negative) Ur Oxycodone Screen Negative (Negative) Urine Methadone Screen Negative (Negative) Ur Barbiturates Screen Negative (Negative) U Tricyclic Antidepress Negative (Negative) Ur Phencyclidine Scrn Negative (Negative) Ur Amphetamines Screen Negative (Negative) U Methamphetamines Scrn Negative (Negative) Ur MDMA Scrn (Ecstasy) Negative (Negative) U Benzodiazepines Scrn Negative (Negative) Urine Cocaine Screen Negative (Negative) U Marijuana (THC) Screen Negative (Negative) Urine pH Normal (Normal) Urine Specific [place] Normal (Normal) Ethyl Alcohol < 10 ( - 10) mg/dL Ur Creatinine Normal (Normal) Imaging Data Chest x-ray: Radiologist's Impresson: Close Chest X-Ray (Signed) Deangelo Jean Baptiste - 11/26/[address] [address] XRay Report Signed Patient: Judy Hinson MR#: [id number] : 1980 Acct:[id number] Age/Sex: 44 / F Date of Service: 11/26/24 Loc: ED Accession Number: [id number] Procedure: XR chest 1V Ordering Provider: Brodie Reynolds MD PROCEDURE: XR CHEST 1V INDICATIONS: chest pain TECHNIQUE: One view of the chest was acquired. COMPARISON: None. FINDINGS: Surgical changes and devices: None. Lungs and pleura: Lungs are clear. Low lung volumes. No pleural effusions or pneumothorax. Mediastinum: Mediastinal contours appear normal. Heart size is prominent. Bones and chest wall: No suspicious bony lesions. Overlying soft tissues appear unremarkable. IMPRESSION: Prominent heart size. No acute pulmonary process. Low lung volumes. Dictated by: Deangelo Jean Baptiste M.D. on 11/26/2024 at 8:22 Approved by: Deangelo Jean Baptiste M.D. on 11/26/2024 at 8:23 ECG Data Attestation: I personally reviewed and interpreted this ECG as follows: Interpretation: Atrial fibrillation with ventricular response rate 140, no obvious ST segment elevation or depression changes. Some T-wave inversion leads 3 and F, upright in lead 2. QRS 78, QTC 454. 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 No current anticoagulation, by history patient might have intermittent atrial fibrillation, although this is apparently a new diagnosis, stable for now. Trial of rate control, IV diltiazem bolus then infusion. Patient agreeable. Labs pending. Chest x-ray pending. Screening labs unremarkable. Chest x-ray no acute changes. [id number] Score =1 for being female, 0.6% stroke risk per year (MedCal[employer]). Diltiazem bolus 20 mg given, IV infusion titrated now at 10 milligrams/minute, AFib with VR rate 100-130 range from 140-160. Will consult Cardiology. PCP Darrell noted, for possible admission. Patient aware. 819, case discussed with cardiology Dr. Kemp, he can consult, agrees with rate control trial for now can admit here, history of lower heart rate resting noted, instead of long-acting Cardizem oral he would suggest short-acting oral Cardizem 30 mg q.6 hours PRN, and attempt to wean diltiazem drip later today/tomorrow. He recommends starting oral anticoagulation, will start Eliquis 5 mg by mouth twice daily. She might need eventual KEVEN/cardioversion in follow up. For now can admit here. We will contact CARLOS Ramírez/covering physician regarding admission. Patient updated. No contraindications to oral anticoagulation, first oral Eliquis 5 mg dose ordered. Patient agreeable. Await call back from PCP regarding admission. Flagged for admission. Office of Dr. Ramírez contacted, who defers to Dr. Dunlap. Case discussed with Dr. Dunlap who prefers no oral diltiazem be given right now, order not yet placed, titrate IV diltiazem for now. Admit to ICU on titrating IV diltiazem infusion for rate control, Dr. Dunlap accepting. Critical Care Time Critical Care Time Critical Care Time: Yes Total Critical Care Time: 35 Attestation: The high probability of a clinically significant, sudden or life threatening deterioration of the [cardiopulmonary] systems required my full and direct attention, intervention and personal management. The aggregate critical care time was [35] minutes. This time is in addition to time spent performing reported procedures but includes the following: [x] Data Review and interpretation [x] Patient assessment and monitoring of vital signs [x] Documentation [x] Medication orders and management Discharge Plan Departure Patient Disposition: Admitted As Inpatient Clinical Impression: Atrial fibrillation with rapid ventricular response Admit Date/Time: 11/26/24 09:57 Admit Provider: Daryn Dunlap
[2024-11-26 07:43] LABS: Add Manual Diff / Slide Review NO; Basophils Absolute Auto 200 /uL (0-100); Basophils Percent Auto 2.8 % (0-2); Eosinophils Absolute Auto 100 /uL (0-450); Eosinophils Percent Auto 0.8 % (2-4); Hematocrit 36.3 % (36-46); Hemoglobin 11.8 g/dL (12.0-16.0); Lymphocytes Absolute Auto 1300 /uL (1100-4500); Lymphocytes Percent Auto 18.2 % (25-40); Mean Corpuscular HGB Conc 32.6 % (30-36); Mean Corpuscular Hemoglobin 23.5 PG (26-34); Monocytes Absolute Auto 500 /uL (0-900); Monocytes Percent Auto 7.3 % (3-14); Neutrophils Absolute Auto 5100 /uL (1500-7000); Neutrophils Percent Auto 70.9 % (50-75); Platelet Count 265 X10^3/uL (150-400); Red Blood Cell Count 5.04 X10^6/uL (4.0-5.2); Red Cell Distribution Width 15.6 % (11.6-14.8); White Blood Cell Count 7.1 X10^3/uL (4.5-11.0)
[2024-11-26] MEDS: dilTIAZem 25 MG/5 ML SDV 20 MG IV (07:43)
[2024-11-26] MEDS: dilTIAZem 125 MG in SODIUM CHLORIDE 0.9% 100 ML IV (07:45)
[2024-11-26 07:53] LABS: Alanine Aminotransferase 13 IU/L (<35); Albumin 4.1 g/dL (3.5-5.0); Albumin Globulin Ratio 1.2 (1.0-2.8); Alkaline Phosphatase 94 U/L (38-126); Aspartate Aminotransferase 25 IU/L (14-36); BUN Creatinine Ratio 19.2 (6-22); Bilirubin Total 0.5 mg/dL (0.2-1.3); Blood Urea Nitrogen 14 mg/dL (7-17); Calcium 9.2 mg/dL (8.4-10.2); Carbon Dioxide 26 mmol/L (22-32); Chloride 108 mmol/L (98-107); Creatine Kinase 60 U/L (30-135); Estimated Glomerular Filt Rate > 60 mL/min (>60); Globulin 3.5 g/dL (1.7-4.1); Glucose 99 mg/dL (70-100); HEMOLYSIS < 15 (0-50); Lipase 67 U/L (23-300); Potassium 4.2 mmol/L (3.4-5.1); Sodium 139 mmol/L (137-145); Total Protein 7.6 g/dL (6.3-8.2)
[2024-11-26 07:54] LABS: Ethanol (ETOH) < 10 mg/dL
[2024-11-26 08:06] LABS: Troponin I < 0.012 ng/mL (0.01-0.034)
[2024-11-26 08:10] LABS: Free T4, Direct Thyroxine 1.03 ng/dL (0.78-2.19)
[2024-11-26 08:11] LABS: HCG Quantitative /Beta subunit < 2.39 mIU/mL
[2024-11-26 08:24] LABS: Thyroid Stimulating Hormone 2.93 uIU/mL (0.47-4.68)
[2024-11-26 08:54] LABS: UR Morphine/Opiate cutoff 300 Negative (Negative); Ur Creatinine Normal (Normal); Ur Specific Gravity Normal (Normal); Urine Amphetamines Negative (Negative); Urine Barbiturates Negative (Negative); Urine Benzodiazepines Negative (Negative); Urine Cocaine Negative (Negative); Urine MDMA Negative (Negative); Urine Methadone Negative (Negative); Urine Methamphetamines Negative (Negative); Urine Oxycodone Negative (Negative); Urine Phencyclidine Negative (Negative); Urine Tetrahydrocannabinol Negative (Negative); Urine Tricyclic Antidepressant Negative (Negative); Urine pH Normal (Normal)
--- NOTE | 2024-11-26 09:22 | PC.NURSE ---
PT sitting back in courtney, reading. Appears in NAD. Denies pain.
--- NOTE | 2024-11-26 09:57 | DI.ECHO.S_ITS ---
[facility] +---------+ Hospital : : [address] : : [place] : : [address] : : Phone: [phone] Echocardiogram Report + + :Name: TESS STEPHENS Study Date: 11/26/2024 Height: 68 in : :[facility] ReadingLocation: Weight: 310 lb : : Gender: Female BSA: 2.5 m2 : :: 1980 Age: 44 yrs BP: 114/75 mmHg: :Reason For Study: ATRIAL FIBRILLATION : :Ordering Physician: DICK, : :ANASTACIO Gutierrez Performed By: Namrata Macias : :Referring: ANASTACIO JENNINGS : + + Interpretation Summary The left ventricle is mildly dilated. The ejection fraction is estimated to be 55-60%. Normal both atria size. No valvular abnormality. Procedure: A two-dimensional transthoracic echocardiogram with color flow and Doppler was performed. The study quality was technically adequate. There is no prior echocardiogram noted for this patient. The patient was in sinus bradycardia with heart rates between 52-62 bpm during the exam. Left Ventricle: The left ventricle is mildly dilated. There is normal left ventricular wall thickness. The ejection fraction is estimated to be 55-60%. There are no focal wall motion abnormalities. Right Ventricle: The right ventricle is normal in size and function. Atria: The left atrial size is normal. The right atrium is normal in size. There is no Doppler evidence for an interatrial shunt. Mitral Valve: The mitral valve leaflets appear borderline thickened, but open well. There is trace mitral regurgitation. Aortic Valve: The aortic valve is trileaflet. The aortic valve opens well. There is no aortic valve stenosis. No aortic regurgitation is present. Tricuspid Valve: The tricuspid valve leaflets are thin and pliable. There is trace tricuspid regurgitation. The right ventricular systolic pressure is estimated to be at least 18 mmHg based on an estimated right atrial pressure of 3 mm Hg. Pulmonic Valve: The pulmonic valve is not well seen, but is grossly normal. There is no pulmonic valvular regurgitation. Great Vessels: The aortic root is normal size. The dimensions of the ascending aorta are normal. The IVC is of normal diameter and collapses greater than 50% with a sniff. This suggests a low right atrial pressure of 3 mm Hg. Pericardium/ Pleura There is no pericardial effusion. There is no pleural effusion. MMode/2D Measurements & Calculations LVIDd: 6.0 cm LVOT diam: 2.1 cm LVIDs: 4.0 cm Ao root diam: 2.7 cm FS: 32.5 % asc Aorta Diam: 3.5 cm EPSS: 1.0 cm Ao Arch Diam (Prox Trans): 3.0 cm IVSd: 0.83 cm LVPWd: 0.65 cm LV chong. diameter/BSA (cm/m^2): 2.4 LV sys. diameter/BSA (cm/m^2): 1.6 LA A2 area: 21.3 cm2 RA long axis: 5.1 cm LA A4 area: 24.7 cm2 RA area: 18.6 cm2 LA length (vol): 6.1 cm RA vol: 57.6 ml LA vol: 73.0 ml RA : 23.4 ml/m2 LA vol index: 29.6 ml/m2 IVC diam: 1.9 cm RVD1 (basal): 4.0 cm RVD2 (mid): 3.1 cm TAPSE: 2.4 cm Doppler Measurements & Calculations Ao V2 max: 135.9 cm/sec LVOT Max Azael: 103.4 cm/sec Ao V2 mean: 105.7 cm/sec LV V1 max P.3 mmHg Ao max P.4 mmHg LV V1 VTI: 22.4 cm Ao mean P.7 mmHg LENARD(I,D): 2.6 cm2 Ao V2 VTI: 29.8 cm LENRAD(V,D): 2.7 cm2 sev ratio: 0.75 LENARD indexed to BSA (cm^2/m^2): 1.1 MV E max azael: 85.1 cm/sec TR max azael: 196.2 cm/sec MV A max azael: 37.0 cm/sec TR max P.4 mmHg MV E/A: 2.3 PA V2 max: 81.8 cm/sec Med Peak E' Azael: 8.5 cm/sec PA V2 mean: 58.6 cm/sec E/E' med: 10.0 PA mean P.5 mmHg Lat Peak E' Azael: 13.4 cm/sec PA pr(Accel): 27.6 mmHg E/E' lat: 6.3 E/e' average: 8.2 MV dec time: 0.17 sec SV([facility]): 78.7 ml Electronically signed by: Leif Huff on Reading Physician:11/26/2024 04:19 PM
--- NOTE | 2024-11-26 09:57 | P.HP_ITS ---
History of Present Illness History of Present Illness Date Patient Seen: 11/26/24 Time Patient Seen: 09:57 Chief complaint: racing pulse Narrative: 44-year-old patient normally sees Dr. Kiel Ramírze, not seen by him in the clinic for almost a year and a half. On no chronic medications who awoke this morning noting palpitations In the ER she was found to be in atrial fibrillation with rapid ventricular response. She has been slowed somewhat with IV diltiazem. Lab work EKG and chest x-ray unremarkable. Specifically normal thyroid studies and remainder of chemistries [facility] Medical History Morbid obesity with body mass index (BMI) of 45.0 to 49.9 in adult (10/15/16) Raynaud's disease without gangrene Amenorrhea (05/03/02) Rosacea Arthritis Depression Hidradenitis suppurativa Obesity Family History Grandmother Polymyalgia rheumatica Mother Hypertension Family/Other Polymyalgia rheumatica Son Autism Social History household members: family Smoking Status: Never smoker alcohol intake: current Meds Home Medications and Allergies Home Medications Medication Instructions Recorded Confirmed Type aspirin 325 mg tablet 325 mg PO DAILY #90 tabs 11/26/24 Rx diltiazem HCl 120 mg 120 mg PO DAILY #30 caps 11/26/24 Rx capsule,extended release 24 hr Allergies Allergy/AdvReac Type Severity Reaction Status Date / Time morphine Allergy Mild HIVES Verified 03/20/24 07:58 Review of Systems Review of Systems ROS: Yes All systems reviewed with the patient and are negative except as otherwise documented Exam Vital Signs (past 8 hours): - 11/26/24 06:58 11/26/24 07:18 11/26/24 07:21 Temperature 97.8 F Pulse Rate 90 140 H 160 H Respiratory Rate 16 Blood Pressure 120/89 Pulse Oximetry 100 99 98 Oxygen Delivery Method Room Air 11/26/24 07:21 11/26/24 07:25 11/26/24 07:30 Temperature Pulse Rate 153 H 148 H Respiratory Rate 20 12 Blood Pressure 134/76 Pulse Oximetry 98 99 Oxygen Delivery Method 11/26/24 07:30 11/26/24 07:35 11/26/24 07:40 Temperature Pulse Rate 152 H 159 H Respiratory Rate 18 16 Blood Pressure 136/92 H Pulse Oximetry 98 98 Oxygen Delivery Method Room Air 11/26/24 07:43 11/26/24 07:45 11/26/24 07:45 Temperature Pulse Rate 168 H 149 H 146 H Respiratory Rate 13 Blood Pressure 154/83 H 154/83 H Pulse Oximetry 98 Oxygen Delivery Method 11/26/24 07:46 11/26/24 07:46 11/26/24 07:50 Temperature Pulse Rate 159 H 129 H Respiratory Rate 15 15 Blood Pressure 154/83 H Pulse Oximetry 97 98 Oxygen Delivery Method Room Air 11/26/24 07:52 11/26/24 07:52 11/26/24 07:55 Temperature Pulse Rate 118 H 104 H Respiratory Rate 14 14 Blood Pressure 138/79 Pulse Oximetry 98 96 Oxygen Delivery Method Room Air 11/26/24 07:55 11/26/24 07:57 11/26/24 07:57 Temperature Pulse Rate 101 H Respiratory Rate Blood Pressure 120/65 126/64 Pulse Oximetry 97 Oxygen Delivery Method 11/26/24 08:00 11/26/24 08:00 11/26/24 08:03 Temperature Pulse Rate 120 H Respiratory Rate 15 Blood Pressure 120/57 L 107/59 L Pulse Oximetry 96 Oxygen Delivery Method Room Air 11/26/24 08:03 11/26/24 08:05 11/26/24 08:06 Temperature Pulse Rate 101 H 113 H 96 H Respiratory Rate 12 12 10 L Blood Pressure Pulse Oximetry 95 96 96 Oxygen Delivery Method 11/26/24 08:06 11/26/24 08:09 11/26/24 08:09 Temperature Pulse Rate 133 H Respiratory Rate 22 Blood Pressure 116/58 L 117/70 Pulse Oximetry 97 Oxygen Delivery Method Room Air 11/26/24 08:10 11/26/24 08:13 11/26/24 08:13 Temperature Pulse Rate 121 H 117 H Respiratory Rate 15 11 L Blood Pressure 130/69 Pulse Oximetry 97 97 Oxygen Delivery Method 11/26/24 08:15 11/26/24 08:15 11/26/24 08:19 Temperature Pulse Rate 127 H 120 H Respiratory Rate 11 L 15 Blood Pressure 110/69 Pulse Oximetry 95 97 Oxygen Delivery Method Room Air 11/26/24 08:19 11/26/24 08:20 11/26/24 08:22 Temperature Pulse Rate 128 H 126 H Respiratory Rate 14 15 Blood Pressure 106/83 Pulse Oximetry 96 96 Oxygen Delivery Method 11/26/24 08:22 11/26/24 08:24 11/26/24 08:24 Temperature Pulse Rate 123 H Respiratory Rate 16 Blood Pressure 120/58 L 117/68 Pulse Oximetry 98 Oxygen Delivery Method 11/26/24 08:25 11/26/24 08:32 11/26/24 08:34 Temperature Pulse Rate 109 H 114 H 127 H Respiratory Rate 25 H 9 L Blood Pressure Pulse Oximetry 97 100 Oxygen Delivery Method Room Air 11/26/24 08:34 11/26/24 08:35 11/26/24 08:36 Temperature Pulse Rate 156 H Respiratory Rate 19 Blood Pressure 109/78 115/93 H Pulse Oximetry 100 Oxygen Delivery Method 11/26/24 08:36 11/26/24 08:40 11/26/24 08:40 Temperature Pulse Rate 154 H 149 H Respiratory Rate 15 15 Blood Pressure 119/77 Pulse Oximetry 99 100 Oxygen Delivery Method 11/26/24 08:42 11/26/24 08:42 11/26/24 08:45 Temperature Pulse Rate 135 H 153 H Respiratory Rate 15 16 Blood Pressure 138/75 Pulse Oximetry 99 99 Oxygen Delivery Method Room Air 11/26/24 08:50 11/26/24 08:55 11/26/24 09:00 Temperature Pulse Rate 144 H 104 H 126 H Respiratory Rate 15 17 12 Blood Pressure Pulse Oximetry 98 99 99 Oxygen Delivery Method Room Air 11/26/24 09:01 11/26/24 09:01 11/26/24 09:05 Temperature Pulse Rate 135 H 123 H Respiratory Rate 16 20 Blood Pressure 114/72 Pulse Oximetry 100 99 Oxygen Delivery Method 11/26/24 09:10 11/26/24 09:15 Temperature Pulse Rate 141 H 123 H Respiratory Rate 17 13 Blood Pressure Pulse Oximetry 100 99 Oxygen Delivery Method Room Air Oxygen Delivery Method Room Air Narrative Exam Narrative: pleasant young female in no obvious distress sitting in hospital bed HEENT-unremarkable, normocephalic atraumatic Neck-no lymphadenopathy no bruits Lungs-clear anteriorly and posteriorly no wheezes no crackles good breath sounds Heart-regular rate and rhythm, no murmur, rub, or gallop. normal S1-S2 Abdomen-positive bowel tones, soft, nontender, nondistended, no hepatosplenomegaly, no masses palpable Neuro-normal to screening exam, gait not tested Extremities-no cyanosis clubbing or edema Objective Labs 11/26/24 07:28 11/26/24 07:28 Labs: Laboratory Results - last 24 hr 11/26/24 11/26/24 07:05 07:28 WBC 7.1 RBC 5.04 Hgb 11.8 L Hct 36.3 MCV 72.0 L MCH 23.5 L MCHC 32.6 RDW 15.6 H Plt Count 265 Neut % (Auto) 70.9 Lymph % (Auto) 18.2 L [place] % (Auto) 7.3 Eos % (Auto) 0.8 L Baso % (Auto) 2.8 H Neut # (Auto) 5100 Lymph # (Auto) 1300 [place] # (Auto) 500 Eos # (Auto) 100 Baso # (Auto) 200 H Sodium 139 Potassium 4.2 Chloride 108 H Carbon Dioxide 26 BUN 14 Creatinine 0.73 Estimated GFR > 60 BUN/Creatinine Ratio 19.2 Glucose 99 Calcium 9.2 Magnesium 2.0 Total Bilirubin 0.5 AST 25 ALT 13 Alkaline Phosphatase 94 Total Creatine Kinase 60 Troponin I < 0.012 Total Protein 7.6 Albumin 4.1 Globulin 3.5 Albumin/Globulin Ratio 1.2 Lipase 67 TSH 2.93 Free T4 1.03 HCG, Quant < 2.39 U Opiates 300ng/mL cut Negative Ur Oxycodone Screen Negative Urine Methadone Screen Negative Ur Barbiturates Screen Negative U Tricyclic Antidepress Negative Ur Phencyclidine Scrn Negative Ur Amphetamines Screen Negative U Methamphetamines Scrn Negative Ur MDMA Scrn (Ecstasy) Negative U Benzodiazepines Scrn Negative Urine Cocaine Screen Negative U Marijuana (THC) Screen Negative Urine pH Normal Urine Specific [place] Normal Ethyl Alcohol < 10 Ur Creatinine Normal Assessment & Plan Assessment & Plan narrative: 1. Atrial fibrillation rapid ventricular response-no clear etiology at this point. Need to rate control will continue to use parental diltiazem and assuming that she does come under reasonable rate control consider switching to oral diltiazem. Patient apparently with a history of some significant bradycardia at rest would be somewhat hesitant to use a beta goldie long-term therefore Her CHADS-VASc score is 1 and I would not advocate anticoagulation for a female of this age with that is score. Apparently cardiology was contacted by emergency department and they did recommend initiation of oral anticoagulation although my review of the literature suggest that that is not really indicated with that score in women. 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 She clearly needs echocardiogram to look for structural etiologies maybe contributing factor to her atrial fibrillation. Her body habitus will make this somewhat less than perfect exam however 2. Morbid obesity-patient was BMI of 47.1. This will complicate her care here in the hospital make it more difficult to evaluate her hard as above with ECHO etcetera. Consider nutrition/dietitian resources to help patient with weight loss strategies 3. VTE prophylaxis-patient be appropriate for Lovenox assuming she was not felt to need Eliquis on a regular basis. She did receive a single dose of Eliquis in the ER and therefore I am not going to start Lovenox at this time 4. Code status-full code in the event of a sudden cardiac or respiratory arrest Patient went back to sinus rhythm after a couple hours on the IV diltiazem. Heart rate is in the 70s and sinus. Will give patient a dose oral diltiazem and if she remains in sinus rhythm for the next several hours she can likely be discharged and we can complete her evaluation including echocardiography as an outpatient. Discussed with her the possibility of stroke prevention with anticoagulation in the fact that I do not believe that is indicated in her case given her lack of other risk factors besides the atrial fibrillation in so she will remain off of Eliquis assuming she gets discharged. An aspirin A dayleast until echo can be performed does make sense however. Time-Based Coding :: [TOTAL MINUTES] spent with patient and on the chart (including review of chart, obtaining history, exam, reviewing outside data, placing orders, documenting exam and treatment plan, and counseling patient) on [DATE]. 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
[2024-11-26] MEDS: APIXABAN 5 MG TABLET PO (10:06)
[2024-11-26] MEDS: ACETAMINOPHEN 325 MG TABLET 650 MG PO ×2 (10:06→15:53)
--- NOTE | 2024-11-26 10:08 | PC.NURSE ---
Pt reports LOBATO. Dr Reynolds notified. Verbal order received for 650 mg PO Tylenol.
[2024-11-26] MEDS: dilTIAZem CD 120 MG CAP PO (14:22)
--- NOTE | 2024-11-26 17:03 | PC.NURSE ---
1657--rec'd pt from ED at 1258; pt NSR on monitor on diltiazem gtt @ 10mg\hr; Dr Dunlap notified and he came to see pt; pt given po dose of diltiazem and drip discontinued; pt remained in sinus rhythm and Dr Dunlap discharged pt home with prescriptions for ASA and po diltiazem; written and verbal discharge instructions given to pt and she verbalized understanding; iv and telemetry removed; pt discharged to private vehicle via w/c and accompanied by staff; all belongings sent w/ pt
== END 2024-11-26 16:57 | disposition home or self-care (01) ==
LOC: ED 09:57 → AC 10:14 → ICU 13:52 → AC 11-27 09:07 → ICU 11-27 09:07
PROVIDERS: Admitting Provider Internal Medicine; Emergency Provider Emergency Medicine; Family Provider Family Medicine; PCP Family Medicine; Referring Provider Emergency Medicine; Visit Provider Internal Medicine
DX: I48.91 Unspecified atrial fibrillation (principal); E66.01 Morbid (severe) obesity due to excess calories; Z68.42 Body mass index [BMI] 45.0-49.9, adult
CPT/HCPCS: 36415; 71045; 80053; 80305; 80320; 82550; 83690; 83735; 84439; 84443; 84484; 84702; 85025; 93005; 93306; 96365; 96366; 96375; 99284; 99291; G0378

== ENCOUNTER → 2024-12-12 14:30 | Outpatient (CLI) | payer OTHER, SELFPAY ==
[2024-11-26 10:37] VITALS: BMI 47.1
== END ==
PROVIDERS: Family Provider Family Medicine; PCP Family Medicine; Referring Provider Family Medicine; Visit Provider Family Medicine
DX: I48.91 Unspecified atrial fibrillation (principal)
CPT/HCPCS: 93246; 93248

== ENCOUNTER → 2025-03-01 17:11 | Outpatient (CLI) | payer OTHER, SELFPAY ==
[2024-11-26 10:37] VITALS: BMI 47.1
--- NOTE | 2025-03-01 17:13 | DI.MG.S_ITS ---
MM screening mammo BI: 03/01/2025. BI-RADS: 1 CLINICAL: 44-year old female for bilateral screening mammogram. Tyrer-Cuzick lifetime risk of 8.7%. No personal or first-degree family history of breast cancer. PRIOR EXAMS: None. This is a baseline mammogram. MAMMOGRAPHY TECHNIQUE: 2D and 3D (tomosynthesis) digital mammographic views obtained, with additional images as needed for full coverage. Current study was also evaluated with a Computer Aided Detection (CAD) system. DENSITY C. The breasts are heterogeneously dense, which may obscure small masses. MAMMOGRAPHY FINDINGS Bilateral: No suspicious mass, asymmetry, microcalcification, or other abnormality seen. IMPRESSION: * No evidence of malignancy. RECOMMENDATIONS Bilateral * Annual screening mammography. OVERALL ASSESSMENT CATEGORY BI-RADS-1: Negative. The [employer] recommends annual screening mammography beginning at age 40 for women with average risk of breast cancer. ELECTRONICALLY SIGNED: Frankie Rogers M.D. on 03/02/2025 at 09:26:38 PM PT Interpreting Station ID: [id number]
== END ==
PROVIDERS: Family Provider Family Medicine; PCP Family Medicine; Referring Provider Family Medicine; Visit Provider Family Medicine
DX: Z12.31 Encounter for screening mammogram for malignant neoplasm of breast (principal); R92.333 Mammographic heterogeneous density, bilateral breasts
CPT/HCPCS: 77063; 77067

== ENCOUNTER → 2025-07-03 14:44 | Outpatient (CLI) | payer OTHER, SELFPAY ==
[2025-07-02 16:37] VITALS: BMI 47.1
--- NOTE | 2025-07-03 14:45 | DI.RAD.S_ITS ---
PROCEDURE: XR FOOT LT MIN 3V INDICATIONS: pain posterior heel TECHNIQUE: 3 views of the foot were acquired. COMPARISON: None. FINDINGS: Bones: Os trigonum noted. Joints: The joint spaces are normal in width and alignment without arthritic change. Soft tissues: Heavy calcification Achilles and plantar tendon insertion on the calcaneus. Moderate posterior soft tissue swelling noted. IMPRESSION: Moderate plantar soft tissue swelling of the hindfoot is likely edema or inflammation. Other chronic findings Dictated by: Daryn Davis M.D. on 07/04/2025 at 7:34 Approved by: Daryn Davis M.D. on 07/04/2025 at 7:35
== END ==
PROVIDERS: PCP Family Medicine; Referring Provider Physician Assistant; Visit Provider Physician Assistant
DX: M65.872 Other synovitis and tenosynovitis, left ankle and foot (principal); M79.89 Other specified soft tissue disorders; M79.672 Pain in left foot; G89.29 Other chronic pain
CPT/HCPCS: 73630

== ENCOUNTER → 2025-10-16 14:10 | Outpatient (CLI) | payer OTHER, SELFPAY ==
[2025-07-02 16:37] VITALS: BMI 47.1
--- NOTE | 2025-10-16 14:11 | DI.RAD.S_ITS ---
PROCEDURE: XR HAND RT 2V INDICATIONS: 3/4 digits PIPs were red, swollen hot until 2 days ago TECHNIQUE: 3 views of the hand(s) acquired. COMPARISON: None. FINDINGS: Bones: No fractures or dislocations. Carpal bones are normally aligned. No suspicious bony lesions. Soft tissues: No suspicious soft tissue calcifications. IMPRESSION: No acute bony abnormality. Dictated by: Jose Eduardo Guerrero M.D. on 10/16/2025 at 13:44 Approved by: Jose Eduardo Guerrero M.D. on 10/16/2025 at 13:46
[2025-10-16 15:09] LABS: Hematocrit 32.7 % (36-46); Hemoglobin 10.6 g/dL (12.0-16.0); Lymphocytes Absolute Auto 1600 /uL (1100-4500); Mean Corpuscular HGB Conc 32.4 % (30-36); Mean Corpuscular Hemoglobin 21.8 PG (26-34); Mean Corpuscular Volume 67.4 fL (80-100); Platelet Count 293 X10^3/uL (150-400)
[2025-10-16 15:13] LABS: Add Manual Diff / Slide Review SLIDE REVIEW
[2025-10-16 15:23] LABS: Hypochromasia 1+; Microcytosis 2+
[2025-10-16 16:25] LABS: Alanine Aminotransferase 11 IU/L (<35); Albumin 4.4 g/dL (3.5-5.0); Albumin Globulin Ratio 1.2 (1.0-2.8); Alkaline Phosphatase 79 U/L (38-126); Blood Urea Nitrogen 14 mg/dL (7-17); Calcium 9.4 mg/dL (8.4-10.2); Carbon Dioxide 27 mmol/L (22-32); Chloride 104 mmol/L (98-107); Estimated Glomerular Filt Rate > 60 mL/min (>60); Globulin 3.6 g/dL (1.7-4.1); Glucose 91 mg/dL (70-99); HEMOLYSIS < 15 (0-50); Potassium 4.0 mmol/L (3.4-5.1); Sodium 140 mmol/L (137-145); Total Protein 8.0 g/dL (6.3-8.2); Uric Acid 4.0 mg/dL (2.5-6.2)
[2025-10-16 17:41] LABS: Ferritin 5 ng/mL (6-137)
== END ==
PROVIDERS: PCP Family Medicine; Referring Provider Physician Assistant; Visit Provider Physician Assistant
DX: M79.644 Pain in right finger(s) (principal); D64.9 Anemia, unspecified
CPT/HCPCS: 36415; 73120; 80053; 82728; 84550; 85025; 85651